=== PATIENT | female | born 1940 | race Caucasian/White ===

== ENCOUNTER 2019-05-15 10:15 | Inpatient (IN) | payer OTHER ==
[2019-05-15 10:46] VITALS: BMI 25.4
[2019-05-15] MEDS ORDERED: SODIUM CHLORIDE 1,000 ML IV STA (11:25)
[2019-05-15] MEDS ORDERED: METOCLOPRAMIDE HCL INJECTION 10 MG/2 ML VIAL IVPUSH ONE (11:25)
[2019-05-15] MEDS ORDERED: FAMOTIDINE 20 MG/50 ML IVPB 20 MG/50 ML MG IVPB ONE ×2 (11:26→11:33)
[2019-05-15] MEDS ORDERED: MAG HYDROX/AL HYDROX/SIMETH 30 ML UNIT-DOSE CUP PO ONE (11:26)
--- NOTE | 2019-05-15 11:28 | PDOC ---
History of Present Illness - General Chief Complaint: Pain, Acute Stated Complaint: ABD.PAIN/VOMITING Time Seen by Provider: 05/15/19 11:20 - History of Present Illness Initial Comments: 05/15/19 12:03 78f with pmh of GERD and HTN presents to the emergency department for nausea, non-bilious or bloody vomiting and abdominal pain since last night. She also had minimal diarrhea this morning. She says the pain feels like her usual GERD symptoms except more sever, with a burning quality. She denies subjective fever, chills, recent trauma or any past surgeries. Also denies dysuria, constipation, chest pain, sob. Past History - Past Medical History Allergies/Adverse Reactions: Allergies Allergy/AdvReac Type Severity Reaction Status Date / Time Fish Containing Products Allergy Mild Verified 05/15/19 19:26 fish derived Allergy Mild Verified 05/15/19 19:26 Penicillins Allergy Verified 05/15/19 10:43 Home Medications: Ambulatory Orders Amlodipine Besylate/Benazepril [Lotrel 5-40 mg Capsule] 1 each PO DAILY Cyanocobalamin [Vitamin B12 -] 1 tab PO DAILY 06/16/16 Esomeprazole Magnesium 40 mg PO DAILY 06/16/16 Gabapentin [Neurontin -] 100 mg PO Q8H 06/16/16 Multivitamin with Minerals [Icaps Plus] 1 each PO DAILY 06/16/16 COPD: No GI Disorders: Yes (GERD) HTN: Yes - Immunization History Immunization Up to Date: Yes - Suicide/Smoking/Psychosocial Hx Smoking History: Never smoked Hx Alcohol Use: No Drug/Substance Use Hx: No Substance Use Type: None Review of Systems - Review of Systems Able to Perform ROS?: Yes Is the patient limited Faroese proficient: No Constitutional: No: Symptoms Reported HEENTM: No: Symptoms Reported Respiratory: No: Symptoms reported Cardiac (ROS): No: Symptoms Reported ABD/GI: Yes: See HPI, Nausea, Vomiting. No: Abdominal Distended, Abd. Pain w/ defecation, Blood Streaked Bowels, Difficulty Swallowing, Rectal Bleeding, Tarry Stools : No: Symptoms Reported Musculoskeletal: No: Symptoms Reported Integumentary: No: Symptoms Reported Neurological: No: Symptoms reported All Other Systems: Reviewed and Negative *Physical Exam - Vital Signs Last Vital Signs Temp Pulse Resp BP Pulse Ox 98.1 F 72 17 139/67 99 08/29/19 10:43 05/15/19 10:43 05/15/19 10:43 05/15/19 10:43 05/15/19 10:43 - Physical Exam General Appearance: Yes: Nourished, Appropriately Dressed, Moderate Distress HEENT: positive: EOMI, LAYNE, Normal ENT Inspection Respiratory/Chest: positive: Lungs Clear, Normal Breath Sounds. negative: Chest Tender, Respiratory Distress Cardiovascular: positive: Regular Rhythm, Regular Rate, S1, S2 Gastrointestinal/Abdominal: positive: Normal Bowel Sounds, Tender (diffusely but more so in the upper quadrant. ), Soft. negative: Organomegaly, Pulsatile Mass, Decreased BS, Protuberent, Distended, Hernia Musculoskeletal: positive: Normal Inspection. negative: CVA Tenderness Extremity: positive: Normal Capillary Refill, Normal Inspection, Normal Range of Motion Integumentary: positive: Normal Color, Dry, Warm Neurologic: positive: Fully Oriented, Alert, Normal Mood/Affect, Normal Response , Motor Strength /5 ED Treatment Course - LABORATORY CBC & Chemistry Diagram: 05/15/19 12:00 05/15/19 12:00 Medical Decision Making - Medical Decision Making 78f with pmh of GERd and HTN presents with n/v/d and exquisite abdominal pain since last night. Differential including but not limited to: Gallstones, gastric ulcer/perforation , aortic dissection, pancreatitis, diverticulitis, mesenteric ischemia, atypical ACS. 05/15/19 11:25 EKG: Normal sinus rhythm, nonspecific T wave abnormality, Prolonged QT. Vent rate 74, MA 158, QRS 72, QT/QTc 448/97 05/15/19 12:29 Bedside ultrasound performed with possible stones in the gallbladder, difficult exam, will repeat official U/S, likely complete with CT ab/pelv with contrast. Also checking free air under diaphrag with cxr and blood in the stool with stool guaiac. 05/15/19 13:12 Patient has elevated Lactate, liver enzymes, Lipase and Bilirubin, likely obstruction in the pancreatic duct. CT abdomen pending, Will control pain, getting abx, fluids. 05/15/19 14:20 CT read: Findings consistent with acute pancreatitis mainly involving the pancreatic tail at this junction with the pancreatic body with significant stranding of the surrounding mesenteric fat and a moderate amount of free fluid extending to the left perinephric space, left flank/ paracolic gutter and lower pelvis. There is also suggestion of mild ileus involving adjacent small bowel loops in the left mid abdomen with mild wall thickening likely due to surrounding fatty change. Thickening of the gastric antrum wall with haziness of the surrounding fat, rule out gastritis or an infiltrative process. Partially distended gallbladder with hyperemia and mild thickening of its wall as well as stranding of the surrounding fat versus a small amount of pericholecystic free fluid. Rule out acute cholecystitis. Previously described gallstones on prior upper abdomen ultrasound done earlier on the same date are not appreciated on this exam. Thickening of the ascending colon wall that may be due to surrounding inflammatory changes. Similar finding is seen in the descending colon. There is collapse of the transverse colon limiting evaluation of its wall. Colitis cannot be excluded. Correlate clinically. Spoke to Dr. Harper who recommended constant hydration and MRCP with GI consult. Consulting GI reservations clerk. Starting abx and LR x2 boluses and maintenance. 05/15/19 15:[address] Negron who has been consulted for the patient. MRCP pending. Patient admitted under Dr. Terrell. Will repeat lactate and decide whether or not patient needs ICU. 05/15/19 15:14 Patient admitted to med surg *DC/Admit/Observation/Transfer Diagnosis at time of Disposition: Cholecystitis, Pancreatitis due to biliary obstruction, Colitis, Gastritis - Discharge Dispostion Decision to Admit order: Yes - Referrals - Patient Instructions - Post Discharge Activity
[2019-05-15] MEDS ORDERED: METOCLOPRAMIDE HCL INJECTION 10 MG/2 ML VIAL ONE (12:01)
--- NOTE | 2019-05-15 12:08 | PDOC ---
Documentation entered by Adriana Stein SCRIBE, acting as scribe for Tomasa Omalley MD. Tomasa Omalley MD: This documentation has been prepared by the Sarita partida Adrianna, SCRIBE, under my direction and personally reviewed by me in its entirety. I confirm that the documentation accurately reflects all work, treatment, procedures, and medical decision making performed by me. Attending Attestation - Resident Resident Name: Jesse Cummings - ED Attending Attestation I have performed the following: I have examined & evaluated the patient, The case was reviewed & discussed with the resident, I agree w/resident's findings & plan, Exceptions are as noted - HPI HPI: 05/15/19 12:05 78 yo F w h/o htn gastrisittis GERD here today c/o intractable n/v /d starting last pm. pt describes more than 10 episodes of nonbloody nonbilious emesis. also several episodes of loose watery stool. no fever, but does report chills. no mod factors. no h/o abd surgery. no urinary complaints. no cough no cp no other complaints. pcp dianna Terrell. - Physicial Exam PE: 05/15/19 12:06 awake alert dry mucous membranes lungs clear bilat heart rrr no mrg abd soft epigastric ttp. ruq ttp. no rebound no guarding. no edema. no calf tenderness. no flank/ cva tenderness. - Medical Decision Making 05/15/19 12:07 78 yo F with htn gerd n/v/ diffusely tender abd exam, mostly ruq, differential gastritis dehydration. cholecystitis pyelonephritis. pancreatitis, gatric ulcer , colitis, plan labs iv hydration lipase lactate ua antiemetics. ruq us. possible ct pending results of ruq sono. 05/15/19 14:25 pt with cholecystitis/ pancreatitis stones. elevated wbc, will given aztreonam, pt pcn allergic, surgery consulted d/w dr Harper ( dr Cummings), ct read pending. pg GI, d/w DR Dianna Terrell for admission. Heart Score/ECG Review #1 General ECG Interpretation: Sinus Rhythm, Normal Rate (74), Normal Intervals, No acute ischemic changes
[2019-05-15 12:14] LABS: BASO % 0.2 % (0-2.0); HEMATOCRIT 48.6 % (32.4-45.2); HEMOGLOBIN 15.6 GM/dL (10.7-15.3); LYMPH % 2.9 % (8-40); MCH 28.2 pg (25.7-33.7); MCHC 32.1 g/dl (32.0-36.0); MEAN PLT VOLUME 9.6 fl (7.5-11.1); MONO % 4.5 % (3.8-10.2); NEUT % 92.4 % (42.8-82.8); PLATELET COUNT 283 K/MM3 (134-434); RBC 5.52 M/mm3 (3.60-5.2); RDW 14.8 % (11.6-15.6); WHITE BLOOD COUNT 11.4 K/mm3 (4.0-10.0)
[2019-05-15 12:48] LABS: ALBUMIN 4.2 g/dl (3.4-5.0); ALK PHOS 176 U/L (45-117); ANION GAP 9 MMOL/L (8-16); BILIRUBIN,TOTAL 2.8 mg/dL (0.2-1); BLOOD UREA NITROGEN 17.9 mg/dL (7-18); CALCIUM 10.1 mg/dL (8.5-10.1); CHLORIDE 106 mmol/L (98-107); CO2 25 mmol/L (21-32); CREATININE 1.5 mg/dL (0.55-1.3); GLUCOSE,RANDOM 246 mg/dL (74-106); LIPASE 12480 U/L (73-393); SGOT/AST 512 U/L (15-37); SGPT/ALT 405 U/L (13-61); SODIUM 139 mmol/L (136-145); TOT PROT 7.3 g/dl (6.4-8.2)
[2019-05-15 12:58] LABS: ANISOCYTOSIS 0; MACROCYTOSIS 0; PLATELET ESTIMATE NORMAL
[2019-05-15] MEDS ORDERED: AZTREONAM 2 GM in DEXTROSE 5%-WATER 100 ML IVPB ONE (13:08)
[2019-05-15] MEDS ORDERED: LACTATED RINGERS SOLUTION 1,000 ML/1,000 ML INFUS.BAG IV STA (13:11)
[2019-05-15] MEDS ORDERED: morphine CARPU-JECT 4 MG/1 ML DISP.SYRIN IVPUSH ONE ×2 (13:13→15:17)
[2019-05-15] MEDS ORDERED: morphine SULFATE 4 MG/ML VIAL ONE ×2 (13:17→15:13)
[2019-05-15] MEDS ORDERED: LACTATED RINGERS SOLUTION 1,000 ML/1,000 ML INFUS.BAG IV SCH (13:45)
--- NOTE | 2019-05-15 15:27 | EKG ---
Test Reason : Blood Pressure : / mmHG Vent. Rate : 074 BPM Atrial Rate : 074 BPM P-R Int : 158 ms QRS Dur : 072 ms QT Int : 448 ms P-R-T Axes : 064 -05 049 degrees QTc Int : 497 ms POOR DATA QUALITY, INTERPRETATION MAY BE ADVERSELY AFFECTED NORMAL SINUS RHYTHM NONSPECIFIC T WAVE ABNORMALITY PROLONGED QT ABNORMAL ECG NO PREVIOUS ECGS AVAILABLE Confirmed by RAMSEY SHAFFER, ADRIANO ([id number]) on 05/15/2019 3:27:29 PM Referred By: Confirmed By:ADRIANO MUSTAFA MD
[2019-05-15] MEDS ORDERED: ONDANSETRON 4 MG/2 ML VIAL IVPUSH PRN (17:15)
[2019-05-15] MEDS ORDERED: SODIUM CHLORIDE 1,000 ML IV SCH (17:15)
--- NOTE | 2019-05-15 17:18 | HP ---
Admitting History and Physical - Primary Care Physician PCP: Liliya Terrell - Admission Chief Complaint: abd pain History of Present Illness: ER HISTORY-- - History of Present Illness Initial Comments: 05/15/19 12:03 78f with pmh of GERD and HTN presents to the emergency department for nausea, non-bilious or bloody vomiting and abdominal pain since last night. She also had minimal diarrhea this morning. She says the pain feels like her usual GERD symptoms except more sever, with a burning quality. She denies subjective fever, chills, recent trauma or any past surgeries. Also denies dysuria, constipation, chest pain, sob. Pt examined by me in ER Family at bedside Pt in severe pain -- received 8mg Morphine so far Has been having progressively severe abd pain with nausea since 1 day No fever had diarrhea + vomiting+ no appetite History Source: Patient, Family Member Limitations to Obtaining History: Language Barrier - Past Medical History Cardiovascular: Yes: HTN Gastrointestinal: Yes: GERD - Smoking History Smoking history: Never smoked - Alcohol/Substance Use Hx Alcohol Use: No Home Medications - Allergies Allergies/Adverse Reactions: Allergies Allergy/AdvReac Type Severity Reaction Status Date / Time Fish Containing Products Allergy Mild Verified 05/15/19 19:26 fish derived Allergy Mild Verified 05/15/19 19:26 Penicillins Allergy Verified 05/15/19 10:43 - Home Medications Home Medications: Ambulatory Orders Amlodipine Besylate/Benazepril [Lotrel 5-40 mg Capsule] 1 each PO DAILY Cyanocobalamin [Vitamin B12 -] 1 tab PO DAILY 06/16/16 Esomeprazole Magnesium 40 mg PO DAILY 06/16/16 Gabapentin [Neurontin -] 100 mg PO Q8H 06/16/16 Multivitamin with Minerals [Icaps Plus] 1 each PO DAILY 06/16/16 Family Disease History - Family Disease History Family History: Denies Review of Systems - Review of Systems Constitutional: denies: Chills, Fever, Weakness Gastrointestinal: reports: Abdominal Pain, Diarrhea, Nausea, Vomiting Physical Examination Vital Signs: Vital Signs Temperature 97.8 F 05/15/19 12:08 Pulse Rate 74 05/15/19 15:20 Respiratory Rate 18 05/15/19 15:20 Blood Pressure 153/100 05/15/19 15:20 O2 Sat by Pulse Oximetry (%) 99 05/15/19 10:43 Constitutional: Yes: Moderate Distress Cardiovascular: Yes: Regular Rate and Rhythm Respiratory: Yes: CTA Bilaterally Gastrointestinal: Yes: Normal Bowel Sounds, Soft, Abdomen, Obese, Distention, Tenderness (RUQ+) Edema: No Neurological: Yes: Alert, Oriented Labs: CBC, BMP 05/15/19 12:00 05/15/19 12:00 Imaging - Results Chest X-ray: Image Reviewed Cat Scan: Report Reviewed Ultrasound: Report Reviewed EKG: Image Reviewed (sinus, prolonged QTc) Problem List - Problems (1) Acute gallstone pancreatitis Code(s): K85.10 - BILIARY ACUTE PANCREATITIS WITHOUT NECROSIS OR INFECTION (2) Cholecystitis Code(s): K81.9 - CHOLECYSTITIS, UNSPECIFIED (3) Gastritis Code(s): K29.70 - GASTRITIS, UNSPECIFIED, WITHOUT BLEEDING (4) Hypertension Code(s): I10 - ESSENTIAL (PRIMARY) HYPERTENSION Qualifiers: Hypertension type: essential hypertension Qualified Code(s): I10 - Essential (primary) hypertension Assessment/Plan PLAN elevated WBC ID eval Surgery and GI eval IV antibiotics cultures drawn NPO IV fluids pain control with Morphine DVT prophylaxis-- SCD , Lovenox sc Will need cholecystectomy
[2019-05-15 18:23] LABS: VENOUS PC02 33.3 mmHg (38-52); VENOUS PH 7.39 (7.31-7.41)
[2019-05-15 18:32] LABS: VENOUS PO2 < 49 mmHg (28-48)
[2019-05-15] MEDS: MORPHINE SULFATE 2 MG/ML VIAL IVPUSH PRN ×2 (18:32→21:58)
[2019-05-15] MEDS: LACTATED RINGERS SOLUTION 1,000 ML/1,000 ML INFUS.BAG IV SCH (18:32)
[2019-05-15] MEDS ORDERED: POTASSIUM CHLORIDE ORAL LIQUID 20 MEQ/15 ML PO STA (20:27)
[2019-05-15] MEDS ORDERED: DEXTROSE 5%-WATER - 50 ML IVPB ONE (20:57)
[2019-05-15] MEDS ORDERED: AZTREONAM 1 GM VIAL (RESTRICTED TO ID) ONE (20:57)
--- NOTE | 2019-05-15 20:58 | CON.GI ---
Consult Consult Specialty:: GI Referred by:: Dr. Lillian Terrell Reason for Consultation:: Pancreatitis - History of Present Illness Chief Complaint: Abdominal pain, nausea, vomtiing. Tel[employer] Git seismic interpreter [id number] and family at bedside to aid in interpretation (daughter / ) History of Present Illness: 78F admitted through [facility] ER for evaluation of progressively worse upper abdominal pain acoompanied by nausea and vomiting. ]She has had less severe episodes in the past, the last being 1 month ago while she was in the [place]. In the ED she was noted to have a leukocytosis, elevated liver chemistries and a lipase of 12,[address] scan of the A/P was performed with IV contrast revealed changes consistent with acute pancreatitis and thickened gallbladder wall. Abdominal US revealed multoiple gallstones, thickened gallbladder wall and trace pericholecystic fluid. The biliary tract did not appear dilated. She received 2 L of lactated ringers in the ED. She has just returned from MRI. upper abdominal pain persists. - History Source History Provided By: Patient, Family Member - Past Medical History Cardio/Vascular: Yes: HTN Gastrointestinal: Yes: GERD ...: No - Past Surgical History Additional Surgical History: Denies - Alcohol/Substance Use Hx Alcohol Use: No History of Substance Use: reports: None - Smoking History Smoking history: Never smoked Have you smoked in the past 12 months: No - Social History Usual Living Arrangement: With Spouse ADL: Independent Place of : Other ([facility]) History of Recent Travel: Yes () Home Medications - Allergies Allergies/Adverse Reactions: Allergies Allergy/AdvReac Type Severity Reaction Status Date / Time Fish Containing Products Allergy Mild Verified 05/15/19 19:26 fish derived Allergy Mild Verified 05/15/19 19:26 Penicillins Allergy Verified 05/15/19 10:43 - Home Medications Home Medications: Ambulatory Orders Amlodipine Besylate/Benazepril [Lotrel 5-40 mg Capsule] 1 each PO DAILY Cyanocobalamin [Vitamin B12 -] 1 tab PO DAILY 06/16/16 Esomeprazole Magnesium 40 mg PO DAILY 06/16/16 Gabapentin [Neurontin -] 100 mg PO Q8H 06/16/16 Multivitamin with Minerals [Icaps Plus] 1 each PO DAILY 06/16/16 Family Disease History - Family Disease History Family Disease History: Other: Daughter Other Family History: No family history of colorectal cancer, pancreatitis Review of Systems - Review of Systems Constitutional: reports: Chills Cardiovascular: denies: Chest Pain Respiratory: denies: Cough, SOB Gastrointestinal: reports: Abdominal Pain, Nausea, Vomiting. denies: Rectal Bleeding Physical Exam-GI Vital Signs: Vital Signs Temperature 97.8 F 05/15/19 18:04 Pulse Rate 72 05/15/19 18:04 Respiratory Rate 18 05/15/19 18:04 Blood Pressure 154/76 05/15/19 18:04 O2 Sat by Pulse Oximetry (%) 98 05/15/19 18:04 Constitutional: Yes: Calm Eyes: No: Sclera Icterus Cardiovascular: Yes: Regular Rate and Rhythm Respiratory: Yes: CTA Bilaterally Gastrointestinal Inspection: No: Distention, Scars ...Auscultate: Yes: Normoactive Bowel Sounds ...Palpate: Yes: Soft, Tenderness (TTP mid abdomen. Negative zarate's). No: Guarding ...Percussion: No: Tympanitic Edema: No (No LE edema) Neurological: Yes: Alert (somnolent (had received IV analgesia)) Labs: CBC, BMP 05/15/19 12:00 05/15/19 12:00 Imaging - Results Cat Scan: Report Reviewed, Image Reviewed Problem List - Problems (1) Acute gallstone pancreatitis Assessment/Plan: With prior episodes of biliary colic or passed CBD stones by description. Hemodynamically stable: Advise: Continued IV hydration. Ordered Lactated ringers @ 200cc/hr Monitor I's and O's AM labs MRI/MRCP performed. Await report. Discussed with her daughter this evening the need for possible ERCP if there is radiographic / lab suggestion of retained CBD stone. ID consult placed AM labs ordered with CRP Surgery to evaluate patient. She will need eventual cholecystectomy once clinically improved Code(s): K85.10 - BILIARY ACUTE PANCREATITIS WITHOUT NECROSIS OR INFECTION
[2019-05-15] MEDS ORDERED: AZTREONAM 1 GM in DEXTROSE 5%-WATER - 50 ML IVPB SCH (21:00)
[2019-05-15] MEDS: AZTREONAM 1 GM in DEXTROSE 5%-WATER - 50 ML IVPB SCH (21:58)
[2019-05-15 22:09] LABS: INR 1.24 (0.83-1.09); PROTHROMBIN TIME (PATIENT) 14.7 SEC (9.7-13.0)
[2019-05-15] MEDS ORDERED: VANCOMYCIN 1 GRAM (PRE-DOCKED) 1,000 MG/250 ML BAG IVPB ONE (22:30)
[2019-05-15] MEDS: KCL 10 MEQ IVPB 10 MEQ/100 ML INFUS.BAG IVPB SCH (23:11)
[2019-05-16] MEDS: KCL 10 MEQ IVPB 10 MEQ/100 ML INFUS.BAG IVPB SCH (00:18)
[2019-05-16] MEDS: MORPHINE SULFATE 2 MG/ML VIAL IVPUSH PRN ×6 (01:01→23:26)
[2019-05-16] MEDS ORDERED: DEXTROSE 5%-WATER - 100 ML IVPB ONE (03:56)
[2019-05-16] MEDS ORDERED: AZTREONAM 1 GM VIAL (RESTRICTED TO ID) ONE ×2 (03:56→08:52)
[2019-05-16] MEDS: AZTREONAM 1 GM in DEXTROSE 5%-WATER - 50 ML IVPB SCH ×2 (04:06→09:10)
[2019-05-16] MEDS ORDERED: PT OWN MED DRAWER 7, Y5N ONE ×2 (07:55→17:52)
[2019-05-16] MEDS ORDERED: DEXTROSE 5%-WATER - 50 ML IVPB ONE (08:52)
[2019-05-16 08:56] LABS: BASO % 0.1 % (0-2.0); HEMATOCRIT 46.3 % (32.4-45.2); HEMOGLOBIN 15.1 GM/dL (10.7-15.3); LYMPH % 3.1 % (8-40); MCH 28.3 pg (25.7-33.7); MCHC 32.6 g/dl (32.0-36.0); MEAN CELL VOLUME 86.9 fl (80-96); MEAN PLT VOLUME 9.2 fl (7.5-11.1); MONO % 5.6 % (3.8-10.2); NEUT % 91.2 % (42.8-82.8); PLATELET COUNT 231 K/MM3 (134-434); RBC 5.33 M/mm3 (3.60-5.2); RDW 15.3 % (11.6-15.6); WHITE BLOOD COUNT 17.8 K/mm3 (4.0-10.0)
[2019-05-16] MEDS: PANTOPRAZOLE SODIUM 40 MG VIAL IVPUSH SCH (09:10)
[2019-05-16 09:22] LABS: ALBUMIN 3.4 g/dl (3.4-5.0); BILIRUBIN,TOTAL 3.5 mg/dL (0.2-1); BLOOD UREA NITROGEN 20.7 mg/dL (7-18); CALCIUM 9.2 mg/dL (8.5-10.1); CREATININE 1.2 mg/dL (0.55-1.3); POTASSIUM 4.4 mmol/L (3.5-5.1); TOT PROT 6.2 g/dl (6.4-8.2)
--- NOTE | 2019-05-16 09:33 | PN ---
Progress Note (short form) - Note Progress Note: ID consult dictated imp/reccd 78 yo female admitted from home with abdominal pain, nausea vomiting and diarrhea no fevers she had a similar episode when she was in in January-February of this year- didnot seek medical care- resolved on its own family thinks she has had 3 to 4 similar episodes over the last 1 1/2 years no recent antibiotics only hospitalization has been for childbirth (7 children all born in ) vomiting and diarrhea has resolved has diffuse abdominal pain radiating to the back penicillin allergy rash and swelling gallstone pancreatitis- MRCP pending- r/o choledocholithiasis blood cultures sent last night continue vancomycin/azactam and flagyl continue IVF f/u with GI for surgical evaluation-possible cholycystitis rommel- improving with IVF d/w patient d/w daughters at bedside Problem List - Problems (1) Acute gallstone pancreatitis Code(s): K85.10 - BILIARY ACUTE PANCREATITIS WITHOUT NECROSIS OR INFECTION (2) Cholecystitis Code(s): K81.9 - CHOLECYSTITIS, UNSPECIFIED (3) Penicillin allergy Code(s): Z88.0 - ALLERGY STATUS TO PENICILLIN
[2019-05-16] MEDS: AZTREONAM 2 GM in DEXTROSE 5%-WATER 100 ML IVPB SCH ×2 (10:21→18:18)
--- NOTE | 2019-05-16 10:35 | CONS ---
INFECTIOUS DISEASE CONSULTATION DATE OF CONSULTATION: DATE OF DICTATION: 05/16/2019 REQUESTING PHYSICIAN: Dr. Negron This is an 78-year-old woman admitted from home with abdominal pain, nausea, vomiting, and diarrhea. She had acute onset of these symptoms since the prior night. The vomiting and diarrhea have since resolved. In the ER, she was noted to have an elevated amylase and elevated/abnormal LFTs, diffuse abdominal pain, and a CAT scan consistent with pancreatitis and gallstones. She had a creatinine of 1.5 and was admitted for further evaluation. She denies any fevers or chills. Of note, she was recently in the [facility] in January and February. While there, she had an episode as well of abdominal pain, nausea, vomiting, and diarrhea. She did not seek any medical care, and the symptoms resolved on their own. On further evaluation, the family thinks in the last 1-1/2 years, she has probably had 3 or 4 similar events. PAST MEDICAL HISTORY: Notable for hypertension and GERD. She has only been in the hospital in the [facility] for child , and she has 7 children. SURGICAL HISTORY: She has never had any surgery. SOCIAL HISTORY: She lives at home. She is very active. She lives with her spouse. She takes care of her grandkids. There is no history of cigarette, alcohol, or substance use. ALLERGIES: She is allergic to FISH PRODUCTS and PENICILLIN allergy that the daughter describes as both swelling and rash. MEDICATIONS AT HOME: Include Lotrel, vitamin B12, omeprazole, gabapentin, and multivitamins. FAMILY HISTORY: There is no history of cancer or pancreatitis. REVIEW OF SYSTEMS: As per HPI. She has no chest pain. She has no cough. She has no dysuria. PHYSICAL EXAMINATION: Vital Signs: Temperature is 98.3. Pulse is 84. Blood pressure 142/74, respiratory rate of 18. HEENT: She is normocephalic. Her eyes are anicteric. Neck: Supple. Lungs: Clear to auscultation. Heart: Regular rate and rhythm. Abdomen: Soft. There is no distention. She has bowel sounds, and she has diffuse tenderness to palpation. Extremities: Without edema. Skin: She has no rash. LABORATORY DATA: White count on admission was 11.4. This morning is 17.8. Hemoglobin 15.1. Platelets are 231. INR is 1.2. BUN was 17 and creatinine 1.5 on admission. This morning, they are 20 and 1.2. Glucose of 139. Lactic acid was 3.8 on admission. This morning, it is 1.5. Total bilirubin of 3.5 with AST of 203, ALT of 296, alkaline phosphatase of 164. Lipase on admission was 12,480. This morning, it is 4625. I ordered blood cultures last night, which are pending. She had an ultrasound in the emergency room, that was notable for multiple gallstones with wall thickening and questionable trace pericholecystic fluid; rule out acute cholecystitis. She had a CAT scan of her abdomen and pelvis, that was notable for acute pancreatitis involving the tail of the pancreas at the junction with the pancreatic body, suggestion of mild ileus, thickening of the gastric antrum wall, partially distended gallbladder with hyperemia and mild thickening of its wall; rule out acute cholecystitis. In summary, this is an 78-year-old woman with gallstone pancreatitis, possible choledocholithiasis; rule out cholecystitis. She has a PENICILLIN allergy that appears to be a major allergy. So, at this time, would continue the vancomycin, Azactam, and Flagyl as ordered. Follow up on her MRCP to see if she needs ERCP. IV fluids to continue. Follow up with GI. She is scheduled for surgical evaluation as she appears to have possible cholecystitis. Case was discussed with the patient, with her daughters at the bedside, who served as interpreters as well. MENDEL OWEN M.D. [id number]
[2019-05-16 11:34] LABS: ANISOCYTOSIS 0; MACROCYTOSIS 0; PLATELET ESTIMATE NORMAL
--- NOTE | 2019-05-16 11:41 | PN ---
Progress Note (short form) - Note Progress Note: pt seen/ examined chart reviewed awake. looks weak +ve pain Daughter at bedside reports Meds helping pain. NPO Vital Signs Temp 98.2 F 05/16/19 11:16 Pulse 92 H 05/16/19 11:16 Resp 18 05/16/19 11:16 BP 154/79 05/16/19 11:16 Pulse Ox 96 05/16/19 09:00 Intake & Output 05/15/19 05/15/19 05/16/19 11:59 23:59 11:59 Intake Total 1250 Balance 1250 Weight 126 lb 126 lb Intake: IV 600 LACTATED RINGERS SOLUTION 600 1,000 ml In 1,000 ml @ 200 mls/hr IV ASDIR JOHN Rx#:[id number] IVPB 650 Other: Voiding Method Bedpan Bedpan # Unmeasured Voids Void 1 Bowel Movement No No Height 4 ft 11 in 4 ft 11 in Body Mass Index (BMI) 25.4 25.4 [facility] Measurement Method Est/Stated by Patient Active Medications Metronidazole (Flagyl 500mg Premixed Ivpb -) 500 mg in 100 mls @ 100 mls/hr IVPB Q8H-IV JOHN Last Admin: 05/16/19 10:43 Dose: 100 mls/hr Lactated Ringer's (Lactated Ringers Solution) 1,000 ml in 1,000 mls @ 200 mls/ hr IV ASDIR JOHN Last Admin: 05/15/19 18:32 Dose: 200 mls/hr Aztreonam 2 gm/ Dextrose 100 mls @ 100 mls/hr IVPB Q8H-IV JOHN; Protocol Last Admin: 05/16/19 10:21 Dose: Not Given Vancomycin HCl (Vancomycin (Pre-Docked)) 1,000 mg in 250 mls @ 166.667 mls/hr IVPB Q24H JOHN; Protocol Morphine Sulfate (Morphine Sulfate) 2 mg IVPUSH Q3H PRN PRN Reason: PAIN LEVEL 6-10 Last Admin: 05/16/19 07:36 Dose: 2 mg Ondansetron HCl (Zofran Injection) 4 mg IVPUSH Q4H PRN PRN Reason: NAUSEA AND/OR VOMITING Last Admin: 05/15/19 18:49 Dose: 4 mg Pantoprazole Sodium (Protonix Iv) 40 mg IVPUSH DAILY JOHN Last Admin: 05/16/19 09:10 Dose: 40 mg CBC, BMP 05/16/19 08:38 05/16/19 08:38 Abnormal Lab Results 05/15/19 05/15/19 05/15/19 12:00 12:00 12:00 WBC 11.4 H RBC 5.52 H Hgb 15.6 H Hct 48.6 H D Absolute Neuts (auto) 10.5 H Neutrophils % 92.4 H D Neutrophils % (Manual) 94.9 H Lymphocytes % 2.9 L D Lymphocytes % (Manual) 0.0 L PT with INR INR POC VBG pCO2 POC VBG pO2 VBG HCO3 VBG O2 Sat (Daniela) VBG Base Excess Potassium 3.0 L Chloride BUN Creatinine 1.5 H Random Glucose 246 H Lactic Acid 3.8 H* Total Bilirubin 2.8 H AST 512 H ALT 405 H Alkaline Phosphatase 176 H C-Reactive Protein Total Protein Lipase 03960 H 05/15/19 05/15/19 05/15/19 16:20 17:45 21:00 WBC RBC Hgb Hct Absolute Neuts (auto) Neutrophils % Neutrophils % (Manual) Lymphocytes % Lymphocytes % (Manual) PT with INR 14.70 H INR 1.24 H POC VBG pCO2 33.3 L POC VBG pO2 < 49 H VBG HCO3 19.9 L VBG O2 Sat (Daniela) 69.4 L VBG Base Excess -3.9 L Potassium Chloride BUN Creatinine Random Glucose Lactic Acid 3.5 H* Total Bilirubin AST ALT Alkaline Phosphatase C-Reactive Protein Total Protein Lipase 05/16/19 05/16/19 05/16/19 08:38 08:38 08:38 WBC 17.8 H RBC 5.33 H Hgb Hct 46.3 H Absolute Neuts (auto) 16.2 H Neutrophils % 91.2 H Neutrophils % (Manual) 85.0 H Lymphocytes % 3.1 L Lymphocytes % (Manual) 1.0 L D PT with INR INR POC VBG pCO2 POC VBG pO2 VBG HCO3 VBG O2 Sat (Daniela) VBG Base Excess Potassium Chloride 108 H BUN 20.7 H Creatinine Random Glucose 139 H Lactic Acid Total Bilirubin 3.5 H AST 203 H ALT 296 H Alkaline Phosphatase 164 H C-Reactive Protein 9.4 H Total Protein 6.2 L Lipase 4625 H Physical Awake/ weak supple +ve icterus cvs- s1, s2 rrr abd- soft . +ve tenderness + ext- no edema neuro- alert/ awake a/p Billary Pancreatitis Improved chemistries mri -Pending report Monitor labs also pain control will follow
--- NOTE | 2019-05-16 13:12 | PN.GI ---
GI Progress Note Subjective: No acute events Family at bedside. Her daughter Marisol explains that she was a bit confused this morning, however she has been receiving morphine regularly for the pain. Pain improved a bit per the patient. - Objective Vital Signs: Vital Signs Temperature 98.2 F 05/16/19 11:16 Pulse Rate 92 H 05/16/19 11:16 Respiratory Rate 18 05/16/19 11:16 Blood Pressure 154/79 05/16/19 11:16 O2 Sat by Pulse Oximetry (%) 96 05/16/19 09:00 Constitutional: Calm Eyes: No: Sclera Icterus Cardiovascular: Yes: Regular Rate and Rhythm. No: Murmur Respiratory: Yes: CTA Bilaterally Gastrointestinal Inspection: No: Distention ...Auscultate: Yes: Normoactive Bowel Sounds ...Palpate: Yes: Soft, Tenderness (TTP mid abdomen, somewhat improved from last night's exam.) ...Percussion: No: Tympanitic Edema: No (No LE edema) Neurological: Yes: Alert Labs: CBC, BMP 05/16/19 08:38 05/16/19 08:38 INR, PTT INR 1.24 (0.83-1.09) H 05/15/19 21:00 Hepatic Panel Total Bilirubin 3.5 mg/dL (0.2-1) H 05/16/19 08:38 AST 203 U/L (15-37) H 05/16/19 08:38 ALT 296 U/L (13-61) H 05/16/19 08:38 Alkaline Phosphatase 164 U/L (45-117) H 05/16/19 08:38 Albumin 3.4 g/dl (3.4-5.0) 05/16/19 08:38 Problem List - Problems (1) Acute gallstone pancreatitis Assessment/Plan: Clinically with some improvement and seems to be tolerating IV hydration. Transaminases and ALP have improved a bit with increase in bilirubin. Will continue to observe and await MRCP result. Continue IV hydration: Tolerating LR @ 200cc/hr On Abx for possible cholecystitis however I suspect that GB findings are secondary to pancreatic inflammatory changes. Monitor LFTs, NPO Code(s): K85.10 - BILIARY ACUTE PANCREATITIS WITHOUT NECROSIS OR INFECTION
--- NOTE | 2019-05-16 15:18 | CONSULT ---
Consult Consult Specialty:: General Surgery Referred by:: Edgar Omalley Reason for Consultation:: gallstone pancreatitis - History of Present Illness Chief Complaint: epigastric pain, N/V, diarrhea History of Present Illness: 78yo Randy F with HTN, GERD, no surgical history except colonoscopy ~2 yrs ago, admitted through ER yesterday with epigastric and LUQ pain for at least 1- 2 days, associated with chills (for a week per pt), N/V since Sun, diarrhea on Sunday, and inability to tolerate po. The pain does radiate through to her back, but she also has chronic back and leg pain. In the ER, she had leukocytosis, elevated LFTs and lipase 12K. Imaging includes US, CT, and MRCP, which show gallstones, somewhat contracted gallbladder with thickened wall , edema/inflammation of pancreas, more tail than head, with associated fluid, and no evidence of cbd stones or dilation. GI has seen pt; surgery was asked to assess. She is seen and examined in bed, with family present - daughter Zahra assisted with Portuguese at bedside. She reports feeling a little better overall, pain is better than yesterday, only a little now. She has not had vomiting or diarrhea today. Labs are trending down today, except wbc is up from 11 to 17. Initially elevated lactates are now normal. She is getting IV fluids and antibiotics (per ID). NPO except occasional ice chips. - History Source History Provided By: Family Member (daughter Zahra at bedside, patient) Limitations to Obtaining History: Language Barrier (Portuguese - daughter assisted with translation at bedside) - Past Medical History Cardio/Vascular: Yes: HTN Gastrointestinal: Yes: GERD Reproductive: Yes: Postmenopausal Musculoskeletal: Yes: Osteoarthritis - Past Surgical History Past Surgical History: Yes: Colonoscopy (last ~2 yrs ago) Additional Surgical History: Denies - Alcohol/Substance Use Hx Alcohol Use: No History of Substance Use: reports: None - Smoking History Smoking history: Never smoked Have you smoked in the past 12 months: No - Social History Usual Living Arrangement: With Spouse ADL: Independent History of Recent Travel: Yes () Home Medications - Allergies Allergies/Adverse Reactions: Allergies Allergy/AdvReac Type Severity Reaction Status Date / Time Fish Containing Products Allergy Mild Verified 05/15/19 19:26 fish derived Allergy Mild Verified 05/15/19 19:26 Penicillins Allergy Verified 05/15/19 10:43 - Home Medications Home Medications: Ambulatory Orders Amlodipine Besylate/Benazepril [Lotrel 5-40 mg Capsule] 1 each PO DAILY Cyanocobalamin [Vitamin B12 -] 1 tab PO DAILY 06/16/16 Esomeprazole Magnesium 40 mg PO DAILY 06/16/16 Gabapentin [Neurontin -] 100 mg PO Q8H 06/16/16 Multivitamin with Minerals [Icaps Plus] 1 each PO DAILY 06/16/16 Family Disease History - Family Disease History Family Disease History: Other: Daughter Other Family History: No family history of colorectal cancer, pancreatitis Review of Systems - Review of Systems Constitutional: reports: Chills. denies: Fever Eyes: denies: Blurred Vision, Recent Change in Vision HENT: denies: Difficult Swallowing, Throat Pain Neck: denies: Swollen Glands, Tenderness Cardiovascular: denies: Chest Pain, Palpitations Respiratory: denies: Cough, SOB Gastrointestinal: reports: Abdominal Pain, Diarrhea, Nausea, Vomiting Genitourinary: denies: Burning, Dysuria Musculoskeletal: reports: Back Pain (chronic and also with hpi), Extremity Pain (legs (chronic)) Integumentary: denies: Change in Color, Rash Neurological: reports: Dizziness (on Sunday). denies: Headache Psychiatric: denies: Anxiety, Depression Physical Exam Vital Signs: Vital Signs Temperature 98.2 F 05/16/19 11:16 Pulse Rate 92 H 05/16/19 11:16 Respiratory Rate 18 05/16/19 11:16 Blood Pressure 154/79 05/16/19 11:16 O2 Sat by Pulse Oximetry (%) 96 05/16/19 09:00 Constitutional: Yes: Well Nourished, No Distress, Calm Eyes: Yes: Conjunctiva Clear, EOM Intact. No: Sclera Icterus HENT: Yes: Atraumatic, Normocephalic Neck: Yes: Supple, Trachea Midline Cardiovascular: Yes: Regular Rate and Rhythm Respiratory: Yes: Regular, CTA Bilaterally Gastrointestinal: Yes: Normal Bowel Sounds, Soft, Tenderness (LUQ, epigastric, less RUQ; no rebound/guarding), Tenderness, Epigastrium ...Rectal Exam: Yes: Deferred Renal/: No: CVA Tenderness - Left, CVA Tenderness - Right Musculoskeletal: No: Joint Stiffness, Joint Swelling Extremities: No: Cool, Cyanosis Edema: No Peripheral Pulses WNL: Yes Integumentary: No: Jaundice, Rash Neurological: Yes: Alert, Oriented Psychiatric: Yes: Alert, Oriented Labs: CBC, BMP 05/16/19 08:38 05/16/19 08:38 CMP Sodium 141 mmol/L (136-145) 05/16/19 08:38 Potassium 4.4 mmol/L (3.5-5.1) 05/16/19 08:38 Chloride 108 mmol/L (98-107) H 05/16/19 08:38 Carbon Dioxide 24 mmol/L (21-32) 05/16/19 08:38 Anion Gap 8 MMOL/L (8-16) 05/16/19 08:38 BUN 20.7 mg/dL (7-18) H 05/16/19 08:38 Creatinine 1.2 mg/dL (0.55-1.3) 05/16/19 08:38 Est GFR (CKD-EPI)AfAm 49.43 05/16/19 08:38 Est GFR (CKD-EPI)NonAf 42.65 05/16/19 08:38 Random Glucose 139 mg/dL (74-106) H 05/16/19 08:38 Lactic Acid 1.5 mmol/L (0.4-2.0) 05/16/19 02:29 Calcium 9.2 mg/dL (8.5-10.1) 05/16/19 08:38 Total Bilirubin 3.5 mg/dL (0.2-1) H 05/16/19 08:38 AST 203 U/L (15-37) H 05/16/19 08:38 ALT 296 U/L (13-61) H 05/16/19 08:38 Alkaline Phosphatase 164 U/L (45-117) H 05/16/19 08:38 Troponin I < 0.02 ng/ml (0.00-0.05) 05/15/19 12:00 C-Reactive Protein 9.4 MG/DL (0.00-0.3) H 05/16/19 08:38 Total Protein 6.2 g/dl (6.4-8.2) L 05/16/19 08:38 Albumin 3.4 g/dl (3.4-5.0) 05/16/19 08:38 Lipase 4625 U/L (73-393) H 05/16/19 08:38 INR, PTT INR 1.24 (0.83-1.09) H 05/15/19 21:00 wbc up from 11 BUN/Cr up slightly lactate down from 2 and 3 lipase down from 12K Imaging - Results Cat Scan: Report Reviewed, Image Reviewed (images reviewed - gallbladder with thickened wall and fluid present, inflammation/edema of pancreatic tail and some stranding near head) Ultrasound: Report Reviewed, Image Reviewed (gallstones with no ductal dilation , thickened gb wall, trace pericholecystic fluid) MRI: Report Reviewed (contracted gallbladder with stones, pancreatitis with perisplenic and perihepatic fluid, no ductal dilation or cbd stones appreciated) , Image Reviewed Problem List - Problems (1) Acute gallstone pancreatitis Assessment/Plan: admitted to medicine NPO/generous IV hydration pain meds prn GI/DVT prophylaxis - would continue PPI as at home pt getting antibiotics per ID labs starting to trend down, but WBC up MRCP without cbd stones - monitor labs closely GI following less painful and tender than yesterday by report will follow with you timing for cholecystectomy to be determined ok to continue home bp meds with sips water Code(s): K85.10 - BILIARY ACUTE PANCREATITIS WITHOUT NECROSIS OR INFECTION (2) Epigastric pain Code(s): R10.13 - EPIGASTRIC PAIN (3) Nausea and vomiting Code(s): R11.2 - NAUSEA WITH VOMITING, UNSPECIFIED Qualifiers: Vomiting type: unspecified Vomiting Intractability: non-intractable Qualified Code(s): R11.2 - Nausea with vomiting, unspecified (4) Hypertension Code(s): I10 - ESSENTIAL (PRIMARY) HYPERTENSION Qualifiers: Hypertension type: essential hypertension Qualified Code(s): I10 - Essential (primary) hypertension
[2019-05-16] MEDS: LACTATED RINGERS SOLUTION 1,000 ML/1,000 ML INFUS.BAG IV SCH (18:18)
[2019-05-17] MEDS: VANCOMYCIN 1 GRAM (PRE-DOCKED) 1,000 MG/250 ML BAG IVPB SCH (00:10)
[2019-05-17] MEDS ORDERED: PT OWN MED DRAWER 7, Y5N ONE (02:29)
[2019-05-17] MEDS: AZTREONAM 2 GM in DEXTROSE 5%-WATER 100 ML IVPB SCH ×3 (02:37→17:10)
[2019-05-17] MEDS: MORPHINE SULFATE 2 MG/ML VIAL IVPUSH PRN ×2 (06:20→12:31)
[2019-05-17 09:31] LABS: BASO % 0.1 % (0-2.0); HEMATOCRIT 39.6 % (32.4-45.2); HEMOGLOBIN 12.9 GM/dL (10.7-15.3); LYMPH % 5.5 % (8-40); MCH 28.5 pg (25.7-33.7); MCHC 32.5 g/dl (32.0-36.0); MEAN CELL VOLUME 87.7 fl (80-96); MEAN PLT VOLUME 9.5 fl (7.5-11.1); MONO % 6.9 % (3.8-10.2); NEUT % 87.5 % (42.8-82.8); PLATELET COUNT 175 K/MM3 (134-434); RBC 4.52 M/mm3 (3.60-5.2); RDW 15.1 % (11.6-15.6); WHITE BLOOD COUNT 19.2 K/mm3 (4.0-10.0)
[2019-05-17] MEDS: PANTOPRAZOLE SODIUM 40 MG VIAL IVPUSH SCH (09:31)
[2019-05-17 09:46] LABS: ALBUMIN 2.7 g/dl (3.4-5.0); BILIRUBIN,TOTAL 1.5 mg/dL (0.2-1); BLOOD UREA NITROGEN 17.9 mg/dL (7-18); CALCIUM 8.4 mg/dL (8.5-10.1); CREATININE 0.9 mg/dL (0.55-1.3); POTASSIUM 3.8 mmol/L (3.5-5.1); TOT PROT 5.2 g/dl (6.4-8.2)
[2019-05-17 10:22] LABS: INR 1.54 (0.83-1.09); PROTHROMBIN TIME (PATIENT) 18.3 SEC (9.7-13.0)
--- NOTE | 2019-05-17 11:29 | PN ---
Progress Note (short form) - Note Progress Note: pt seen/ examined sitting in bed family at bedside feels and looks better decreased pain. lfts trending down mri - noted-- No stones Vital Signs Temp 98.3 F 05/17/19 06:00 Pulse 79 05/17/19 06:00 Resp 20 05/17/19 06:00 BP 137/68 05/17/19 06:00 Pulse Ox 93 L 05/16/19 21:00 Intake & Output 05/16/19 05/16/19 05/17/19 11:59 23:59 11:59 Intake Total 1250 1450 1250 Balance 1250 1450 1250 Intake: IV 600 1300 800 LACTATED RINGERS SOLUTION 600 1300 800 1,000 ml In 1,000 ml @ 200 mls/hr IV ASDIR JOHN Rx#:[id number] IVPB 650 150 450 Oral 0 0 Other: Voiding Method Bedpan Toilet Toilet # Unmeasured Voids Void 1 1 1 Bowel Movement No No Active Medications Metronidazole (Flagyl 500mg Premixed Ivpb -) 500 mg in 100 mls @ 100 mls/hr IVPB Q8H-IV JOHN Last Admin: 05/17/19 09:29 Dose: 100 mls/hr Lactated Ringer's (Lactated Ringers Solution) 1,000 ml in 1,000 mls @ 200 mls/ hr IV ASDIR JOHN Last Admin: 05/16/19 18:18 Dose: 200 mls/hr Aztreonam 2 gm/ Dextrose 100 mls @ 100 mls/hr IVPB Q8H-IV JOHN; Protocol Last Admin: 05/17/19 10:49 Dose: 100 mls/hr Vancomycin HCl (Vancomycin (Pre-Docked)) 1,000 mg in 250 mls @ 166.667 mls/hr IVPB Q24H JOHN; Protocol Last Admin: 05/17/19 00:10 Dose: 166.667 mls/hr Morphine Sulfate (Morphine Sulfate) 2 mg IVPUSH Q3H PRN PRN Reason: PAIN LEVEL 6-10 Last Admin: 05/17/19 06:20 Dose: 2 mg Ondansetron HCl (Zofran Injection) 4 mg IVPUSH Q4H PRN PRN Reason: NAUSEA AND/OR VOMITING Last Admin: 05/15/19 18:49 Dose: 4 mg Pantoprazole Sodium (Protonix Iv) 40 mg IVPUSH DAILY JOHN Last Admin: 05/17/19 09:31 Dose: 40 mg CBC,CMP WBC 19.2 K/mm3 (4.0-10.0) H 05/17/19 08:40 RBC 4.52 M/mm3 (3.60-5.2) 05/17/19 08:40 Hgb 12.9 GM/dL (10.7-15.3) 05/17/19 08:40 Hct 39.6 % (32.4-45.2) 05/17/19 08:40 MCV 87.7 fl (80-96) 05/17/19 08:40 MCH 28.5 pg (25.7-33.7) 05/17/19 08:40 MCHC 32.5 g/dl (32.0-36.0) 05/17/19 08:40 RDW 15.1 % (11.6-15.6) 05/17/19 08:40 Plt Count 175 K/MM3 (134-434) D 05/17/19 08:40 MPV 9.5 fl (7.5-11.1) 05/17/19 08:40 Absolute Neuts (auto) 16.8 K/mm3 (1.5-8.0) H 05/17/19 08:40 Neutrophils % 87.5 % (42.8-82.8) H 05/17/19 08:40 Neutrophils % (Manual) 85.0 % (42.8-82.8) H 05/16/19 08:38 Band Neutrophils % 7.0 % 05/16/19 08:38 Lymphocytes % 5.5 % (8-40) L D 05/17/19 08:40 Lymphocytes % (Manual) 1.0 % (8-40) L D 05/16/19 08:38 Monocytes % 6.9 % (3.8-10.2) 05/17/19 08:40 Monocytes % (Manual) 5 % (3.8-10.2) 05/16/19 08:38 Eosinophils % 0.0 % (0-4.5) 05/17/19 08:40 Eosinophils % (Manual) 0.0 % (0-4.5) 05/16/19 08:38 Basophils % 0.1 % (0-2.0) 05/17/19 08:40 Basophils % (Manual) 0.0 % (0-2.0) 05/16/19 08:38 Myelocytes % (Man) 1 % (0-2) D 05/16/19 08:38 Promyelocytes % (Man) 0 % (0-2) 05/16/19 08:38 Blast Cells % (Manual) 0 % (0-0) 05/16/19 08:38 Nucleated RBC % 0 % (0-0) 05/17/19 08:40 Metamyelocytes 1 % (0-2) D 05/16/19 08:38 Hypochromia 0 05/16/19 08:38 Platelet Estimate Normal 05/16/19 08:38 Polychromasia 0 05/16/19 08:38 Poikilocytosis 0 05/16/19 08:38 Anisocytosis 0 05/16/19 08:38 Microcytosis 0 05/16/19 08:38 Macrocytosis 0 05/16/19 08:38 Sodium 138 mmol/L (136-145) 05/17/19 08:40 Potassium 3.8 mmol/L (3.5-5.1) 05/17/19 08:40 Chloride 107 mmol/L (98-107) 05/17/19 08:40 Carbon Dioxide 22 mmol/L (21-32) 05/17/19 08:40 Anion Gap 9 MMOL/L (8-16) 05/17/19 08:40 BUN 17.9 mg/dL (7-18) 05/17/19 08:40 Creatinine 0.9 mg/dL (0.55-1.3) 05/17/19 08:40 Est GFR (CKD-EPI)AfAm 69.99 05/17/19 08:40 Est GFR (CKD-EPI)NonAf 60.39 05/17/19 08:40 Random Glucose 100 mg/dL (74-106) 05/17/19 08:40 Lactic Acid 1.5 mmol/L (0.4-2.0) 05/16/19 02:29 Calcium 8.4 mg/dL (8.5-10.1) L 05/17/19 08:40 Total Bilirubin 1.5 mg/dL (0.2-1) H D 05/17/19 08:40 AST 70 U/L (15-37) H 05/17/19 08:40 ALT 151 U/L (13-61) H 05/17/19 08:40 Alkaline Phosphatase 113 U/L (45-117) 05/17/19 08:40 Troponin I < 0.02 ng/ml (0.00-0.05) 05/15/19 12:00 C-Reactive Protein 23.4 MG/DL (0.00-0.3) H 05/17/19 08:40 Total Protein 5.2 g/dl (6.4-8.2) L 05/17/19 08:40 Albumin 2.7 g/dl (3.4-5.0) L 05/17/19 08:40 Lipase 1109 U/L (73-393) H 05/17/19 08:40 Physical Awake/ weak supple +ve icterus cvs- s1, s2 rrr abd- soft . +ve tenderness + ext- no edema neuro- alert/ awake a/p Billary Pancreatitis Improved chemistries mri Reviewed Monitor labs also-- cbc -- wbc also -- If rise concern for Necrosis pain control will follow keep npo Problem List - Problems (1) Acute gallstone pancreatitis Code(s): K85.10 - BILIARY ACUTE PANCREATITIS WITHOUT NECROSIS OR INFECTION
--- NOTE | 2019-05-17 12:06 | PN ---
Progress Note (short form) - Note Progress Note: Pt feels distended, has been taking morphine; wants something to drink. Abdomen: hypoactive bowel sounds. Labs: CMP Sodium 138 mmol/L (136-145) 05/17/19 08:40 Potassium 3.8 mmol/L (3.5-5.1) 05/17/19 08:40 Chloride 107 mmol/L (98-107) 05/17/19 08:40 Carbon Dioxide 22 mmol/L (21-32) 05/17/19 08:40 Anion Gap 9 MMOL/L (8-16) 05/17/19 08:40 BUN 17.9 mg/dL (7-18) 05/17/19 08:40 Creatinine 0.9 mg/dL (0.55-1.3) 05/17/19 08:40 Est GFR (CKD-EPI)AfAm 69.99 05/17/19 08:40 Est GFR (CKD-EPI)NonAf 60.39 05/17/19 08:40 Random Glucose 100 mg/dL (74-106) 05/17/19 08:40 Lactic Acid 1.5 mmol/L (0.4-2.0) 05/16/19 02:29 Calcium 8.4 mg/dL (8.5-10.1) L 05/17/19 08:40 Total Bilirubin 1.5 mg/dL (0.2-1) H D 05/17/19 08:40 AST 70 U/L (15-37) H 05/17/19 08:40 ALT 151 U/L (13-61) H 05/17/19 08:40 Alkaline Phosphatase 113 U/L (45-117) 05/17/19 08:40 Troponin I < 0.02 ng/ml (0.00-0.05) 05/15/19 12:00 C-Reactive Protein 23.4 MG/DL (0.00-0.3) H 05/17/19 08:40 Total Protein 5.2 g/dl (6.4-8.2) L 05/17/19 08:40 Albumin 2.7 g/dl (3.4-5.0) L 05/17/19 08:40 Lipase 1109 U/L (73-393) H 05/17/19 08:40 Lipase, liver chemistries improved, but WBC increased: CBC WBC 19.2 K/mm3 (4.0-10.0) H 05/17/19 08:40 RBC 4.52 M/mm3 (3.60-5.2) 05/17/19 08:40 Hgb 12.9 GM/dL (10.7-15.3) 05/17/19 08:40 Hct 39.6 % (32.4-45.2) 05/17/19 08:40 MCV 87.7 fl (80-96) 05/17/19 08:40 MCH 28.5 pg (25.7-33.7) 05/17/19 08:40 MCHC 32.5 g/dl (32.0-36.0) 05/17/19 08:40 RDW 15.1 % (11.6-15.6) 05/17/19 08:40 Plt Count 175 K/MM3 (134-434) D 05/17/19 08:40 MPV 9.5 fl (7.5-11.1) 05/17/19 08:40 Absolute Neuts (auto) 16.8 K/mm3 (1.5-8.0) H 05/17/19 08:40 Neutrophils % 87.5 % (42.8-82.8) H 05/17/19 08:40 Neutrophils % (Manual) 85.0 % (42.8-82.8) H 05/16/19 08:38 Band Neutrophils % 7.0 % 05/16/19 08:38 Lymphocytes % 5.5 % (8-40) L D 05/17/19 08:40 Lymphocytes % (Manual) 1.0 % (8-40) L D 05/16/19 08:38 Monocytes % 6.9 % (3.8-10.2) 05/17/19 08:40 Monocytes % (Manual) 5 % (3.8-10.2) 05/16/19 08:38 Eosinophils % 0.0 % (0-4.5) 05/17/19 08:40 Eosinophils % (Manual) 0.0 % (0-4.5) 05/16/19 08:38 Basophils % 0.1 % (0-2.0) 05/17/19 08:40 Basophils % (Manual) 0.0 % (0-2.0) 05/16/19 08:38 Myelocytes % (Man) 1 % (0-2) D 05/16/19 08:38 Promyelocytes % (Man) 0 % (0-2) 05/16/19 08:38 Blast Cells % (Manual) 0 % (0-0) 05/16/19 08:38 Nucleated RBC % 0 % (0-0) 05/17/19 08:40 Metamyelocytes 1 % (0-2) D 05/16/19 08:38 Hypochromia 0 05/16/19 08:38 Platelet Estimate Normal 05/16/19 08:38 Polychromasia 0 05/16/19 08:38 Poikilocytosis 0 05/16/19 08:38 Anisocytosis 0 05/16/19 08:38 Microcytosis 0 05/16/19 08:38 Macrocytosis 0 05/16/19 08:38 Impression: Suspect the elevated WBC reflects pancreatic injury and less likely active infection. To allow full liquid diet as tolerated. If WBC continues to rise will need repeat imaging to assess for pancreatic necrosis/abscess. Necrosis/abscess may not be detected early in course and imaging would best be deferred until next week for best sensitivity.
--- NOTE | 2019-05-17 15:16 | PN ---
Progress Note, Physician History of Present Illness: Pt with gallstone pancreatitis, most of pancreatic inflammation in tail region, though also some stranding at head. GI is also following. She is seen and examined sitting up at edge of bed, with family present - daughters assisted with Mongolian at bedside. She reports feeling about the same, pain is across upper abdomen, both sides and epigastric, maybe a little more to left. No further vomiting or diarrhea. Labs are trending down, except wbc is up to 19. She is getting IV fluids and antibiotics (per ID). Tolerated a few bites of full liquid diet for lunch, but is apprehensive about possible increase in pain. She is able to ambulate, and did get up to use the bathroom, though has been resting more, as medication makes her sleepy. - Current Medication List Current Medications: Active Medications Metronidazole (Flagyl 500mg Premixed Ivpb -) 500 mg in 100 mls @ 100 mls/hr IVPB Q8H-IV JOHN Last Admin: 05/17/19 09:29 Dose: 100 mls/hr Lactated Ringer's (Lactated Ringers Solution) 1,000 ml in 1,000 mls @ 200 mls/ hr IV ASDIR JOHN Last Admin: 05/16/19 18:18 Dose: 200 mls/hr Aztreonam 2 gm/ Dextrose 100 mls @ 100 mls/hr IVPB Q8H-IV JOHN; Protocol Last Admin: 05/17/19 10:49 Dose: 100 mls/hr Vancomycin HCl (Vancomycin (Pre-Docked)) 1,000 mg in 250 mls @ 166.667 mls/hr IVPB Q24H JOHN; Protocol Last Admin: 05/17/19 00:10 Dose: 166.667 mls/hr Morphine Sulfate (Morphine Sulfate) 2 mg IVPUSH Q3H PRN PRN Reason: PAIN LEVEL 6-10 Last Admin: 05/17/19 12:31 Dose: 2 mg Ondansetron HCl (Zofran Injection) 4 mg IVPUSH Q4H PRN PRN Reason: NAUSEA AND/OR VOMITING Last Admin: 05/15/19 18:49 Dose: 4 mg Pantoprazole Sodium (Protonix Iv) 40 mg IVPUSH DAILY JOHN Last Admin: 05/17/19 09:31 Dose: 40 mg - Objective Vital Signs: Vital Signs Temperature 99.3 F 05/17/19 14:15 Pulse Rate 95 H 05/17/19 10:00 Respiratory Rate 20 05/17/19 10:00 Blood Pressure 142/78 05/17/19 10:00 O2 Sat by Pulse Oximetry (%) 93 L 05/16/19 21:00 Constitutional: Yes: Well Nourished, No Distress, Calm Eyes: Yes: Conjunctiva Clear, EOM Intact. No: Sclera Icterus HENT: Yes: Atraumatic, Normocephalic Gastrointestinal: Yes: Soft, Tenderness (bilateral upper quadrants, mild), Tenderness, Epigastrium Extremities: No: Cool, Cyanosis Integumentary: No: Jaundice, Rash Neurological: Yes: Alert, Oriented. No: Unsteady Gait Labs: CBC, BMP 05/17/19 08:40 05/17/19 08:40 INR, PTT INR 1.54 (0.83-1.09) H 05/17/19 08:40 CMP Sodium 138 mmol/L (136-145) 05/17/19 08:40 Potassium 3.8 mmol/L (3.5-5.1) 05/17/19 08:40 Chloride 107 mmol/L (98-107) 05/17/19 08:40 Carbon Dioxide 22 mmol/L (21-32) 05/17/19 08:40 Anion Gap 9 MMOL/L (8-16) 05/17/19 08:40 BUN 17.9 mg/dL (7-18) 05/17/19 08:40 Creatinine 0.9 mg/dL (0.55-1.3) 05/17/19 08:40 Est GFR (CKD-EPI)AfAm 69.99 05/17/19 08:40 Est GFR (CKD-EPI)NonAf 60.39 05/17/19 08:40 Random Glucose 100 mg/dL (74-106) 05/17/19 08:40 Lactic Acid 1.5 mmol/L (0.4-2.0) 05/16/19 02:29 Calcium 8.4 mg/dL (8.5-10.1) L 05/17/19 08:40 Total Bilirubin 1.5 mg/dL (0.2-1) H D 05/17/19 08:40 AST 70 U/L (15-37) H 05/17/19 08:40 ALT 151 U/L (13-61) H 05/17/19 08:40 Alkaline Phosphatase 113 U/L (45-117) 05/17/19 08:40 Troponin I < 0.02 ng/ml (0.00-0.05) 05/15/19 12:00 C-Reactive Protein 23.4 MG/DL (0.00-0.3) H 05/17/19 08:40 Total Protein 5.2 g/dl (6.4-8.2) L 05/17/19 08:40 Albumin 2.7 g/dl (3.4-5.0) L 05/17/19 08:40 Lipase 1109 U/L (73-393) H 05/17/19 08:40 wbc up better hydrated lipase and LFTs trending down Problem List - Problems (1) Acute gallstone pancreatitis Assessment/Plan: continue generous IV hydration pain meds prn - consider nonnarcotics first line (tylenol?) GI/DVT prophylaxis, continue PPI as at home antibiotics per ID labs trending down, but WBC up discussed with Dr. Kc - related to pancreatitis vs gallbladder most likely evolving pancreatic changes, possible developing necrosis pain and tenderness similar to yesterday ok for clear liquids for now - watch for increasing pain or tenderness, or vomiting ok to continue home bp med and gabapentin agree with Dr. Kc, will probably consider re-CT with IV contrast Sunday to reevaluate pancreas timing of cholecystectomy depends on evolution of pancreatitis and clinical status following with you Code(s): K85.10 - BILIARY ACUTE PANCREATITIS WITHOUT NECROSIS OR INFECTION (2) Epigastric pain Code(s): R10.13 - EPIGASTRIC PAIN (3) Nausea and vomiting Assessment/Plan: resolved Code(s): R11.2 - NAUSEA WITH VOMITING, UNSPECIFIED Qualifiers: Vomiting type: unspecified Vomiting Intractability: non-intractable Qualified Code(s): R11.2 - Nausea with vomiting, unspecified (4) Hypertension Code(s): I10 - ESSENTIAL (PRIMARY) HYPERTENSION Qualifiers: Hypertension type: essential hypertension Qualified Code(s): I10 - Essential (primary) hypertension
[2019-05-17] MEDS: LACTATED RINGERS SOLUTION 1,000 ML/1,000 ML INFUS.BAG IV SCH ×2 (17:10→21:03)
--- NOTE | 2019-05-17 18:10 | PN ---
Progress Note, Physician History of Present Illness: AWAKE. SUPINE IN BED DAUGHTER IN ATTENDANCE REPORTS ABDOMINAL PAIN AFEBRILE WBC INCREASED - Current Medication List Current Medications: Active Medications Metronidazole (Flagyl 500mg Premixed Ivpb -) 500 mg in 100 mls @ 100 mls/hr IVPB Q8H-IV JOHN Last Admin: 05/17/19 17:10 Dose: 100 mls/hr Lactated Ringer's (Lactated Ringers Solution) 1,000 ml in 1,000 mls @ 200 mls/ hr IV ASDIR JOHN Last Admin: 05/17/19 17:10 Dose: 200 mls/hr Aztreonam 2 gm/ Dextrose 100 mls @ 100 mls/hr IVPB Q8H-IV JOHN; Protocol Last Admin: 05/17/19 17:10 Dose: 100 mls/hr Vancomycin HCl (Vancomycin (Pre-Docked)) 1,000 mg in 250 mls @ 166.667 mls/hr IVPB Q24H JOHN; Protocol Last Admin: 05/17/19 00:10 Dose: 166.667 mls/hr Morphine Sulfate (Morphine Sulfate) 2 mg IVPUSH Q3H PRN PRN Reason: PAIN LEVEL 6-10 Last Admin: 05/17/19 12:31 Dose: 2 mg Ondansetron HCl (Zofran Injection) 4 mg IVPUSH Q4H PRN PRN Reason: NAUSEA AND/OR VOMITING Last Admin: 05/15/19 18:49 Dose: 4 mg Pantoprazole Sodium (Protonix Iv) 40 mg IVPUSH DAILY [facility] Last Admin: 05/17/19 09:31 Dose: 40 mg - Objective Vital Signs: Vital Signs Temperature 99.3 F 05/17/19 14:15 Pulse Rate 95 H 05/17/19 10:00 Respiratory Rate 20 05/17/19 10:00 Blood Pressure 142/78 05/17/19 10:00 O2 Sat by Pulse Oximetry (%) 93 L 05/16/19 21:00 Constitutional: Yes: No Distress Cardiovascular: Yes: Regular Rate and Rhythm, S1, S2 Respiratory: Yes: CTA Bilaterally Gastrointestinal: Yes: Normal Bowel Sounds, Soft, Other (+ EPIGASTRIC TENDERNESS ) Edema: No Labs: CBC, BMP 05/17/19 08:40 05/17/19 08:40 INR, PTT INR 1.54 (0.83-1.09) H 05/17/19 08:40 Assessment/Plan ACUTE PANCREATITIS LEUKOCYTOSIS PCN ALLERGY GI FOLLOW UP APPRECIATED CONTINUE VANCO/AZTREONAM/FLAGYL DISCUSSED WITH DAUGHTER AT BEDSIDE
[2019-05-18] MEDS: VANCOMYCIN 1 GRAM (PRE-DOCKED) 1,000 MG/250 ML BAG IVPB SCH (00:11)
[2019-05-18] MEDS ORDERED: PT OWN MED DRAWER 7, Y5N ONE (02:19)
[2019-05-18] MEDS: AZTREONAM 2 GM in DEXTROSE 5%-WATER 100 ML IVPB SCH ×3 (02:21→17:41)
[2019-05-18 06:59] LABS: BASO % 0.2 % (0-2.0); HEMOGLOBIN 11.9 GM/dL (10.7-15.3); LYMPH % 6.7 % (8-40); MCH 28.5 pg (25.7-33.7); MCHC 33.1 g/dl (32.0-36.0); MEAN PLT VOLUME 9.4 fl (7.5-11.1); MONO % 8.1 % (3.8-10.2); PLATELET COUNT 157 K/MM3 (134-434); RBC 4.19 M/mm3 (3.60-5.2); RDW 15.1 % (11.6-15.6); WHITE BLOOD COUNT 15.8 K/mm3 (4.0-10.0)
[2019-05-18 07:19] LABS: ALBUMIN 2.3 g/dl (3.4-5.0); BILIRUBIN,TOTAL 1.4 mg/dL (0.2-1); BLOOD UREA NITROGEN 12.2 mg/dL (7-18); CALCIUM 7.9 mg/dL (8.5-10.1); CREATININE 0.7 mg/dL (0.55-1.3); POTASSIUM 3.1 mmol/L (3.5-5.1); TOT PROT 4.8 g/dl (6.4-8.2)
[2019-05-18] MEDS: PANTOPRAZOLE SODIUM 40 MG VIAL IVPUSH SCH (09:28)
--- NOTE | 2019-05-18 10:21 | PN ---
Progress Note (short form) - Note Progress Note: Tolerating small amounts of clear liquids but states she is not hungry and does not feel she can eat more. States her pain is less. Labs are also suggestive of improvement, with decrease in WBC and liver chemistries: CBC WBC 15.8 K/mm3 (4.0-10.0) H 05/18/19 06:33 RBC 4.19 M/mm3 (3.60-5.2) 05/18/19 06:33 Hgb 11.9 GM/dL (10.7-15.3) 05/18/19 06:33 Hct 36.0 % (32.4-45.2) 05/18/19 06:33 MCV 86.0 fl (80-96) 05/18/19 06:33 MCH 28.5 pg (25.7-33.7) 05/18/19 06:33 MCHC 33.1 g/dl (32.0-36.0) 05/18/19 06:33 RDW 15.1 % (11.6-15.6) 05/18/19 06:33 Plt Count 157 K/MM3 (134-434) 05/18/19 06:33 MPV 9.4 fl (7.5-11.1) 05/18/19 06:33 Absolute Neuts (auto) 13.5 K/mm3 (1.5-8.0) H 05/18/19 06:33 Neutrophils % 85.0 % (42.8-82.8) H 05/18/19 06:33 Neutrophils % (Manual) 85.0 % (42.8-82.8) H 05/16/19 08:38 Band Neutrophils % 7.0 % 05/16/19 08:38 Lymphocytes % 6.7 % (8-40) L D 05/18/19 06:33 Lymphocytes % (Manual) 1.0 % (8-40) L D 05/16/19 08:38 Monocytes % 8.1 % (3.8-10.2) 05/18/19 06:33 Monocytes % (Manual) 5 % (3.8-10.2) 05/16/19 08:38 Eosinophils % 0.0 % (0-4.5) 05/18/19 06:33 Eosinophils % (Manual) 0.0 % (0-4.5) 05/16/19 08:38 Basophils % 0.2 % (0-2.0) 05/18/19 06:33 Basophils % (Manual) 0.0 % (0-2.0) 05/16/19 08:38 Myelocytes % (Man) 1 % (0-2) D 05/16/19 08:38 Promyelocytes % (Man) 0 % (0-2) 05/16/19 08:38 Blast Cells % (Manual) 0 % (0-0) 05/16/19 08:38 Nucleated RBC % 0 % (0-0) 05/18/19 06:33 Metamyelocytes 1 % (0-2) D 05/16/19 08:38 Hypochromia 0 05/16/19 08:38 Platelet Estimate Normal 05/16/19 08:38 Polychromasia 0 05/16/19 08:38 Poikilocytosis 0 05/16/19 08:38 Anisocytosis 0 05/16/19 08:38 Microcytosis 0 05/16/19 08:38 Macrocytosis 0 05/16/19 08:38 Hepatic Panel Total Bilirubin 1.4 mg/dL (0.2-1) H 05/18/19 06:33 AST 36 U/L (15-37) 05/18/19 06:33 ALT 90 U/L (13-61) H 05/18/19 06:33 Alkaline Phosphatase 90 U/L (45-117) 05/18/19 06:33 Albumin 2.3 g/dl (3.4-5.0) L 05/18/19 06:33 Abdomen now soft to exam. Chest clear. At this point I have cut back on her IV fluid to 3 L/day. If she takes more liquid p.o. would cut it down further. Vigorous hydration has no doubt helped her recover from pancreatitis but we have to be careful not to push it too long on an 78 year old woman. So far there is no sign of any CHF or fluid overload.
[2019-05-18] MEDS: LACTATED RINGERS SOLUTION 1,000 ML/1,000 ML INFUS.BAG IV SCH (12:11)
--- NOTE | 2019-05-18 12:14 | PN ---
Progress Note, Physician History of Present Illness: OOB IN CHAIR AWAKE, ALERT APPEARS COMFORTABLE LOW GRADE TEMP WBC/ LFTS/LIPASE IMPROVED BC (-) TOLERATING ANTIBIOTICS - Current Medication List Current Medications: Active Medications Metronidazole (Flagyl 500mg Premixed Ivpb -) 500 mg in 100 mls @ 100 mls/hr IVPB Q8H-IV JOHN Last Admin: 05/18/19 09:27 Dose: 100 mls/hr Aztreonam 2 gm/ Dextrose 100 mls @ 100 mls/hr IVPB Q8H-IV JOHN; Protocol Last Admin: 05/18/19 09:25 Dose: 100 mls/hr Vancomycin HCl (Vancomycin (Pre-Docked)) 1,000 mg in 250 mls @ 166.667 mls/hr IVPB Q24H JOHN; Protocol Last Admin: 05/18/19 00:11 Dose: 166.667 mls/hr Lactated Ringer's (Lactated Ringers Solution) 1,000 ml in 1,000 mls @ 125 mls/ hr IV ASDIR JOHN Morphine Sulfate (Morphine Sulfate) 2 mg IVPUSH Q3H PRN PRN Reason: PAIN LEVEL 6-10 Last Admin: 05/17/19 12:31 Dose: 2 mg Ondansetron HCl (Zofran Injection) 4 mg IVPUSH Q4H PRN PRN Reason: NAUSEA AND/OR VOMITING Last Admin: 05/15/19 18:49 Dose: 4 mg Pantoprazole Sodium (Protonix Iv) 40 mg IVPUSH DAILY JOHN Last Admin: 05/18/19 09:28 Dose: 40 mg - Objective Vital Signs: Vital Signs Temperature 98.4 F 05/18/19 10:00 Pulse Rate 94 H 05/18/19 10:00 Respiratory Rate 18 05/18/19 10:00 Blood Pressure 132/71 05/18/19 10:00 O2 Sat by Pulse Oximetry (%) 92 L 05/17/19 21:00 Constitutional: Yes: No Distress Cardiovascular: Yes: Regular Rate and Rhythm, S1, S2 Respiratory: Yes: CTA Bilaterally Gastrointestinal: Yes: Normal Bowel Sounds, Soft, Other (MILD BILATERAL UPPER QUAD TENDERNESS) Edema: No Labs: CBC, BMP 05/18/19 06:33 05/18/19 06:33 INR, PTT INR 1.54 (0.83-1.09) H 05/17/19 08:40 Assessment/Plan ACUTE PANCREATITIS CLINICALLY IMPROVED LEUKOCYTOSIS IMPROVED PCN ALLERGY GI FOLLOW UP APPRECIATED CONTINUE VANCO/AZTREONAM/FLAGYL DISCUSSED WITH DAUGHTER AT BEDSIDE
--- NOTE | 2019-05-18 13:36 | PN ---
Progress Note (short form) - Note Progress Note: Better tolerating liquids pain improved lfts/ wbc coming down family at bedside Vital Signs Temp 98.4 F 05/18/19 10:00 Pulse 94 H 05/18/19 10:00 Resp 18 05/18/19 10:00 BP 132/71 05/18/19 10:00 Pulse Ox 92 L 05/17/19 21:00 Intake & Output 05/17/19 05/18/19 05/18/19 23:59 11:59 23:59 Intake Total 2320 2410 Balance 2320 2410 Intake: IV 2000 1500 LACTATED RINGERS SOLUTION 2000 1500 1,000 ml In 1,000 ml @ 200 mls/hr IV ASDIR JOHN Rx#:[id number] IVPB 200 450 Oral 120 460 Other: Voiding Method Toilet Toilet # Unmeasured Voids Void 2 2 Bowel Movement No Active Medications Metronidazole (Flagyl 500mg Premixed Ivpb -) 500 mg in 100 mls @ 100 mls/hr IVPB Q8H-IV JOHN Last Admin: 05/18/19 09:27 Dose: 100 mls/hr Aztreonam 2 gm/ Dextrose 100 mls @ 100 mls/hr IVPB Q8H-IV JOHN; Protocol Last Admin: 05/18/19 09:25 Dose: 100 mls/hr Vancomycin HCl (Vancomycin (Pre-Docked)) 1,000 mg in 250 mls @ 166.667 mls/hr IVPB Q24H JOHN; Protocol Last Admin: 05/18/19 00:11 Dose: 166.667 mls/hr Lactated Ringer's (Lactated Ringers Solution) 1,000 ml in 1,000 mls @ 125 mls/ hr IV ASDIR JOHN Potassium Chloride (Potassium Chloride 10 Meq Premix Ivpb -) 10 meq in 100 mls @ 100 mls/hr IVPB Q60M JOHN Stop: 05/18/19 16:29 Morphine Sulfate (Morphine Sulfate) 2 mg IVPUSH Q3H PRN PRN Reason: PAIN LEVEL 6-10 Last Admin: 05/17/19 12:31 Dose: 2 mg Ondansetron HCl (Zofran Injection) 4 mg IVPUSH Q4H PRN PRN Reason: NAUSEA AND/OR VOMITING Last Admin: 05/15/19 18:49 Dose: 4 mg Pantoprazole Sodium (Protonix Iv) 40 mg IVPUSH DAILY JOHN Last Admin: 05/18/19 09:28 Dose: 40 mg CBC,CMP WBC 15.8 K/mm3 (4.0-10.0) H 05/18/19 06:33 RBC 4.19 M/mm3 (3.60-5.2) 05/18/19 06:33 Hgb 11.9 GM/dL (10.7-15.3) 05/18/19 06:33 Hct 36.0 % (32.4-45.2) 05/18/19 06:33 MCV 86.0 fl (80-96) 05/18/19 06:33 MCH 28.5 pg (25.7-33.7) 05/18/19 06:33 MCHC 33.1 g/dl (32.0-36.0) 05/18/19 06:33 RDW 15.1 % (11.6-15.6) 05/18/19 06:33 Plt Count 157 K/MM3 (134-434) 05/18/19 06:33 MPV 9.4 fl (7.5-11.1) 05/18/19 06:33 Absolute Neuts (auto) 13.5 K/mm3 (1.5-8.0) H 05/18/19 06:33 Neutrophils % 85.0 % (42.8-82.8) H 05/18/19 06:33 Neutrophils % (Manual) 85.0 % (42.8-82.8) H 05/16/19 08:38 Band Neutrophils % 7.0 % 05/16/19 08:38 Lymphocytes % 6.7 % (8-40) L D 05/18/19 06:33 Lymphocytes % (Manual) 1.0 % (8-40) L D 05/16/19 08:38 Monocytes % 8.1 % (3.8-10.2) 05/18/19 06:33 Monocytes % (Manual) 5 % (3.8-10.2) 05/16/19 08:38 Eosinophils % 0.0 % (0-4.5) 05/18/19 06:33 Eosinophils % (Manual) 0.0 % (0-4.5) 05/16/19 08:38 Basophils % 0.2 % (0-2.0) 05/18/19 06:33 Basophils % (Manual) 0.0 % (0-2.0) 05/16/19 08:38 Myelocytes % (Man) 1 % (0-2) D 05/16/19 08:38 Promyelocytes % (Man) 0 % (0-2) 05/16/19 08:38 Blast Cells % (Manual) 0 % (0-0) 05/16/19 08:38 Nucleated RBC % 0 % (0-0) 05/18/19 06:33 Metamyelocytes 1 % (0-2) D 05/16/19 08:38 Hypochromia 0 05/16/19 08:38 Platelet Estimate Normal 05/16/19 08:38 Polychromasia 0 05/16/19 08:38 Poikilocytosis 0 05/16/19 08:38 Anisocytosis 0 05/16/19 08:38 Microcytosis 0 05/16/19 08:38 Macrocytosis 0 05/16/19 08:38 Sodium 137 mmol/L (136-145) 05/18/19 06:33 Potassium 3.1 mmol/L (3.5-5.1) L 05/18/19 06:33 Chloride 107 mmol/L (98-107) 05/18/19 06:33 Carbon Dioxide 22 mmol/L (21-32) 05/18/19 06:33 Anion Gap 8 MMOL/L (8-16) 05/18/19 06:33 BUN 12.2 mg/dL (7-18) 05/18/19 06:33 Creatinine 0.7 mg/dL (0.55-1.3) 05/18/19 06:33 Est GFR (CKD-EPI)AfAm 94.84 05/18/19 06:33 Est GFR (CKD-EPI)NonAf 81.83 05/18/19 06:33 Random Glucose 113 mg/dL (74-106) H 05/18/19 06:33 Lactic Acid 1.5 mmol/L (0.4-2.0) 05/16/19 02:29 Calcium 7.9 mg/dL (8.5-10.1) L 05/18/19 06:33 Total Bilirubin 1.4 mg/dL (0.2-1) H 05/18/19 06:33 AST 36 U/L (15-37) 05/18/19 06:33 ALT 90 U/L (13-61) H 05/18/19 06:33 Alkaline Phosphatase 90 U/L (45-117) 05/18/19 06:33 Troponin I < 0.02 ng/ml (0.00-0.05) 05/15/19 12:00 C-Reactive Protein 23.4 MG/DL (0.00-0.3) H 05/17/19 08:40 Total Protein 4.8 g/dl (6.4-8.2) L 05/18/19 06:33 Albumin 2.3 g/dl (3.4-5.0) L 05/18/19 06:33 Lipase 262 U/L (73-393) 05/18/19 06:33 Physical Awake/ Better supple cvs- s1, s2 rrr abd- soft . decreased tenderness ext- no edema neuro- alert/ awake a/p Billary Pancreatitis Improved chemistries pain control will follow supplement k Problem List - Problems (1) Acute gallstone pancreatitis Code(s): K85.10 - BILIARY ACUTE PANCREATITIS WITHOUT NECROSIS OR INFECTION
[2019-05-18] MEDS: KCL 10 MEQ IVPB 10 MEQ/100 ML INFUS.BAG IVPB SCH ×3 (14:11→17:42)
--- NOTE | 2019-05-18 16:36 | PN ---
Progress Note, Physician History of Present Illness: Pt with gallstone pancreatitis, most of pancreatic inflammation in tail region, though also some stranding at head. GI is also following. She is seen and examined in bed, with family present - daughter assisted with Bel[place]ian at bedside. She reports feeling a little better. No vomiting, tolerating clears but not having much. Labs are trending down, wbc is down to 15 today. She is getting IV fluids and antibiotics (per ID). She was up in chair for a short time earlier per family. Able to ambulate but not walking much. She does c/o back pain. - Current Medication List Current Medications: Active Medications Metronidazole (Flagyl 500mg Premixed Ivpb -) 500 mg in 100 mls @ 100 mls/hr IVPB Q8H-IV JOHN Last Admin: 05/18/19 09:27 Dose: 100 mls/hr Aztreonam 2 gm/ Dextrose 100 mls @ 100 mls/hr IVPB Q8H-IV JOHN; Protocol Last Admin: 05/18/19 09:25 Dose: 100 mls/hr Vancomycin HCl (Vancomycin (Pre-Docked)) 1,000 mg in 250 mls @ 166.667 mls/hr IVPB Q24H JOHN; Protocol Last Admin: 05/18/19 00:11 Dose: 166.667 mls/hr Lactated Ringer's (Lactated Ringers Solution) 1,000 ml in 1,000 mls @ 125 mls/ hr IV ASDIR JOHN Last Admin: 05/18/19 12:11 Dose: 125 mls/hr Morphine Sulfate (Morphine Sulfate) 2 mg IVPUSH Q3H PRN PRN Reason: PAIN LEVEL 6-10 Last Admin: 05/17/19 12:31 Dose: 2 mg Ondansetron HCl (Zofran Injection) 4 mg IVPUSH Q4H PRN PRN Reason: NAUSEA AND/OR VOMITING Last Admin: 05/15/19 18:49 Dose: 4 mg Pantoprazole Sodium (Protonix Iv) 40 mg IVPUSH DAILY JOHN Last Admin: 05/18/19 09:28 Dose: 40 mg - Objective Vital Signs: Vital Signs Temperature 99.6 F 05/18/19 13:43 Pulse Rate 94 H 05/18/19 10:00 Respiratory Rate 18 05/18/19 10:00 Blood Pressure 132/71 05/18/19 10:00 O2 Sat by Pulse Oximetry (%) 92 L 05/17/19 21:00 Constitutional: Yes: Well Nourished, No Distress, Calm Eyes: Yes: Conjunctiva Clear, EOM Intact. No: Sclera Icterus HENT: Yes: Atraumatic, Normocephalic Gastrointestinal: Yes: Soft. No: Distention, Tenderness (bilateral upper quadrants without tenderness now), Tenderness, Epigastrium (nontender in epigastrium) Genitourinary: Yes: CVA Tenderness - Left (mild), CVA Tenderness - Right (mild) Musculoskeletal: Yes: Back Pain (pt complains of back pain, mildly tender at both sides) Extremities: No: Cool, Cyanosis Integumentary: No: Jaundice, Rash Neurological: Yes: Alert, Oriented Labs: CBC, BMP 05/18/19 06:33 05/18/19 06:33 CMP Sodium 137 mmol/L (136-145) 05/18/19 06:33 Potassium 3.1 mmol/L (3.5-5.1) L 05/18/19 06:33 Chloride 107 mmol/L (98-107) 05/18/19 06:33 Carbon Dioxide 22 mmol/L (21-32) 05/18/19 06:33 Anion Gap 8 MMOL/L (8-16) 05/18/19 06:33 BUN 12.2 mg/dL (7-18) 05/18/19 06:33 Creatinine 0.7 mg/dL (0.55-1.3) 05/18/19 06:33 Est GFR (CKD-EPI)AfAm 94.84 05/18/19 06:33 Est GFR (CKD-EPI)NonAf 81.83 05/18/19 06:33 Random Glucose 113 mg/dL (74-106) H 05/18/19 06:33 Lactic Acid 1.5 mmol/L (0.4-2.0) 05/16/19 02:29 Calcium 7.9 mg/dL (8.5-10.1) L 05/18/19 06:33 Total Bilirubin 1.4 mg/dL (0.2-1) H 05/18/19 06:33 AST 36 U/L (15-37) 05/18/19 06:33 ALT 90 U/L (13-61) H 05/18/19 06:33 Alkaline Phosphatase 90 U/L (45-117) 05/18/19 06:33 Troponin I < 0.02 ng/ml (0.00-0.05) 05/15/19 12:00 C-Reactive Protein 23.4 MG/DL (0.00-0.3) H 05/17/19 08:40 Total Protein 4.8 g/dl (6.4-8.2) L 05/18/19 06:33 Albumin 2.3 g/dl (3.4-5.0) L 05/18/19 06:33 Lipase 262 U/L (73-393) 05/18/19 06:33 K+ being repleted wbc down a bit LFTs down, almost all normal except bili, trending down lipase down to normal Problem List - Problems (1) Acute gallstone pancreatitis Assessment/Plan: pain and tenderness better than yesterday keep on clear liquids for now - watch for increasing pain or tenderness, or vomiting continue IV hydration, decreased now that tolerating some clears and pt improving ok to continue home bp med and gabapentin pain meds prn - consider nonnarcotics first line (tylenol) GI/DVT prophylaxis antibiotics per ID labs trending down, including wbc today replete lytes trend labs encourage sitting up/OOB, ambulation as able incentive spirometer may consider re-CT with IV contrast Sunday to reevaluate pancreas timing of cholecystectomy depends on evolution of pancreatitis and clinical status following with you Code(s): K85.10 - BILIARY ACUTE PANCREATITIS WITHOUT NECROSIS OR INFECTION (2) Epigastric pain Assessment/Plan: improved Code(s): R10.13 - EPIGASTRIC PAIN (3) Hypertension Code(s): I10 - ESSENTIAL (PRIMARY) HYPERTENSION Qualifiers: Hypertension type: essential hypertension Qualified Code(s): I10 - Essential (primary) hypertension
[2019-05-19] MEDS: VANCOMYCIN 1 GRAM (PRE-DOCKED) 1,000 MG/250 ML BAG IVPB SCH (02:00)
[2019-05-19] MEDS: AZTREONAM 2 GM in DEXTROSE 5%-WATER 100 ML IVPB SCH ×3 (02:29→17:02)
[2019-05-19 06:51] LABS: BASO % 0.3 % (0-2.0); EOS % 0.4 % (0-4.5); HEMATOCRIT 33.2 % (32.4-45.2); LYMPH % 7.8 % (8-40); MCH 28.3 pg (25.7-33.7); MEAN CELL VOLUME 85.8 fl (80-96); MEAN PLT VOLUME 9.3 fl (7.5-11.1); MONO % 12.3 % (3.8-10.2); NEUT % 79.2 % (42.8-82.8); PLATELET COUNT 186 K/MM3 (134-434); RBC 3.87 M/mm3 (3.60-5.2); RDW 15.1 % (11.6-15.6); WHITE BLOOD COUNT 14.2 K/mm3 (4.0-10.0)
[2019-05-19 07:27] LABS: ALBUMIN 2.2 g/dl (3.4-5.0); BILIRUBIN,TOTAL 0.9 mg/dL (0.2-1); BLOOD UREA NITROGEN 10.6 mg/dL (7-18); CALCIUM 7.9 mg/dL (8.5-10.1); CREATININE 0.6 mg/dL (0.55-1.3); POTASSIUM 3.2 mmol/L (3.5-5.1); TOT PROT 4.6 g/dl (6.4-8.2)
[2019-05-19] MEDS: PANTOPRAZOLE SODIUM 40 MG VIAL IVPUSH SCH (09:33)
[2019-05-19] MEDS: LACTATED RINGERS SOLUTION 1,000 ML/1,000 ML INFUS.BAG IV SCH (09:34)
--- NOTE | 2019-05-19 11:26 | PN ---
Progress Note (short form) - Note Progress Note: Continue to improve feels and looks better pain better family at bedside not drinking much Vital Signs Temp 98.8 F 05/19/19 05:23 Pulse 94 H 05/19/19 05:23 Resp 18 05/19/19 05:23 BP 137/70 05/19/19 05:23 Pulse Ox 95 05/18/19 21:00 Intake & Output 05/18/19 05/18/19 05/19/19 11:59 23:59 11:59 Intake Total 2410 2620 1900 Balance 2410 2620 1900 Intake: IV 1500 1600 1500 LACTATED RINGERS SOLUTION 1600 1500 1,000 ml In 1,000 ml @ 125 mls/hr IV ASDIR JOHN Rx#:[id number] LACTATED RINGERS SOLUTION 1500 1,000 ml In 1,000 ml @ 200 mls/hr IV ASDIR JOHN Rx#:[id number] IVPB 450 600 400 Oral 460 420 Other: Voiding Method Toilet Toilet Toilet # Unmeasured Voids Void 2 4 2 Bowel Movement No No CBC, BMP 05/19/19 06:15 05/19/19 06:15 Hepatic Panel Total Bilirubin 0.9 mg/dL (0.2-1) 05/19/19 06:15 AST 29 U/L (15-37) 05/19/19 06:15 ALT 64 U/L (13-61) H 05/19/19 06:15 Alkaline Phosphatase 82 U/L (45-117) 05/19/19 06:15 Albumin 2.2 g/dl (3.4-5.0) L 05/19/19 06:15 Physical Awake/ Better supple cvs- s1, s2 rrr abd- soft . decreased tenderness ext- no edema neuro- alert/ awake a/p Billary Pancreatitis Improved chemistries pain control fluids Encourged drinking will follow supplement k d/w rn also Problem List - Problems (1) Acute gallstone pancreatitis Code(s): K85.10 - BILIARY ACUTE PANCREATITIS WITHOUT NECROSIS OR INFECTION
[2019-05-19] MEDS: KCL 10 MEQ IVPB 10 MEQ/100 ML INFUS.BAG IVPB SCH ×3 (11:55→14:32)
[2019-05-19] MEDS ORDERED: D5-1/2NS+20 MEQ KCL - 20 MEQ/1,000 ML INFUS.BAG IV SCH (15:00)
--- NOTE | 2019-05-19 15:07 | PN ---
Progress Note, Physician History of Present Illness: Pt with gallstone pancreatitis, most of pancreatic inflammation in tail region, though also some stranding at head. GI is also following. She is seen and examined sitting up in chair, with family present, who assisted with Egyptian at bedside. She has only a little pain. No vomiting, tolerating clears but not drinking much. Labs are trending down, wbc is down to 14 today. She is getting IV fluids and antibiotics (per ID), K being repleted. Using IS with family. - Current Medication List Current Medications: Active Medications Metronidazole (Flagyl 500mg Premixed Ivpb -) 500 mg in 100 mls @ 100 mls/hr IVPB Q8H-IV JOHN Last Admin: 05/19/19 09:33 Dose: 100 mls/hr Aztreonam 2 gm/ Dextrose 100 mls @ 100 mls/hr IVPB Q8H-IV JOHN; Protocol Last Admin: 05/19/19 09:30 Dose: 100 mls/hr Vancomycin HCl (Vancomycin (Pre-Docked)) 1,000 mg in 250 mls @ 166.667 mls/hr IVPB Q24H JOHN; Protocol Last Admin: 05/19/19 02:00 Dose: 166.667 mls/hr Potassium Chloride/Dextrose/Sod Cl (D5-1/2ns+20 Meq Kcl -) 20 meq in 1,000 mls @ 100 mls/hr IV ASDIR JOHN Ondansetron HCl (Zofran Injection) 4 mg IVPUSH Q4H PRN PRN Reason: NAUSEA AND/OR VOMITING Last Admin: 05/15/19 18:49 Dose: 4 mg Pantoprazole Sodium (Protonix Iv) 40 mg IVPUSH DAILY JOHN Last Admin: 05/19/19 09:33 Dose: 40 mg - Objective Vital Signs: Vital Signs Temperature 99.4 F 05/19/19 13:40 Pulse Rate 93 H 05/19/19 13:40 Respiratory Rate 18 05/19/19 13:40 Blood Pressure 149/82 05/19/19 13:40 O2 Sat by Pulse Oximetry (%) 95 05/19/19 09:00 Constitutional: Yes: Well Nourished, No Distress, Calm Eyes: Yes: Conjunctiva Clear, EOM Intact. No: Sclera Icterus HENT: Yes: Atraumatic, Normocephalic Gastrointestinal: Yes: Soft, Tenderness (RUQ mild), Tenderness, Epigastrium ( mild). No: Tenderness, Rebound Extremities: No: Cool, Cyanosis Integumentary: No: Jaundice, Rash Neurological: Yes: Alert, Oriented Labs: CBC, BMP 05/19/19 06:15 05/19/19 06:15 CMP Sodium 139 mmol/L (136-145) 05/19/19 06:15 Potassium 3.2 mmol/L (3.5-5.1) L 05/19/19 06:15 Chloride 109 mmol/L (98-107) H 05/19/19 06:15 Carbon Dioxide 23 mmol/L (21-32) 05/19/19 06:15 Anion Gap 7 MMOL/L (8-16) L 05/19/19 06:15 BUN 10.6 mg/dL (7-18) 05/19/19 06:15 Creatinine 0.6 mg/dL (0.55-1.3) 05/19/19 06:15 Est GFR (CKD-EPI)AfAm 99.77 05/19/19 06:15 Est GFR (CKD-EPI)NonAf 86.09 05/19/19 06:15 Random Glucose 129 mg/dL (74-106) H 05/19/19 06:15 Calcium 7.9 mg/dL (8.5-10.1) L 05/19/19 06:15 Total Bilirubin 0.9 mg/dL (0.2-1) 05/19/19 06:15 AST 29 U/L (15-37) 05/19/19 06:15 ALT 64 U/L (13-61) H 05/19/19 06:15 Alkaline Phosphatase 82 U/L (45-117) 05/19/19 06:15 Total Protein 4.6 g/dl (6.4-8.2) L 05/19/19 06:15 Albumin 2.2 g/dl (3.4-5.0) L 05/19/19 06:15 LFTs essentially normal wbc still coming down K repleting Problem List - Problems (1) Acute gallstone pancreatitis Assessment/Plan: pain and tenderness minimal keep on clear liquids for now - watch for increasing pain or tenderness, or vomiting NPO after midnight except meds with sips H2O will decrease IV fluids some to encourage po ok to continue home bp med and gabapentin pain meds prn - nonnarcotics first line (tylenol) GI/DVT prophylaxis antibiotics per ID labs trending down, including wbc today replete lytes - changed IV fluids to include KCl trend labs encourage sitting up/OOB, ambulation as able incentive spirometer planning for lap possible open mayo in am Discussed with patient using Egyptian phone section plotter operator #[id number] risks, benefits and alternatives of laparoscopic possible open cholecystectomy, including but not limited to bleeding, infection, injury to adjacent structures, bile leak or ductal injury, intraabdominal abscess, incisional hernia, need for further procedures, ; alternatives include delayed or no surgery - risks of this include recurrence of pancreatitis, cholecystitis, cholangitis, sepsis, . Patient desires to proceed with operation - will take to OR in am for above, presuming no significant change in clinical status. Informed consent signed for same. Code(s): K85.10 - BILIARY ACUTE PANCREATITIS WITHOUT NECROSIS OR INFECTION (2) Epigastric pain Assessment/Plan: improved Code(s): R10.13 - EPIGASTRIC PAIN (3) Hypertension Code(s): I10 - ESSENTIAL (PRIMARY) HYPERTENSION Qualifiers: Hypertension type: essential hypertension Qualified Code(s): I10 - Essential (primary) hypertension
[2019-05-19] MEDS ORDERED: PT OWN MED DRAWER 7, Y5N ONE (23:23)
[2019-05-20] MEDS: AZTREONAM 2 GM in DEXTROSE 5%-WATER 100 ML IVPB SCH ×2 (01:00→18:29)
[2019-05-20] MEDS: VANCOMYCIN 1 GRAM (PRE-DOCKED) 1,000 MG/250 ML BAG IVPB SCH (01:00)
[2019-05-20 01:12] LABS: BASO % 0.5 % (0-2.0); EOS % 1.1 % (0-4.5); HEMATOCRIT 33.4 % (32.4-45.2); HEMOGLOBIN 10.9 GM/dL (10.7-15.3); LYMPH % 7.8 % (8-40); MCH 28.2 pg (25.7-33.7); MCHC 32.5 g/dl (32.0-36.0); MEAN CELL VOLUME 86.7 fl (80-96); MEAN PLT VOLUME 9.4 fl (7.5-11.1); MONO % 15.4 % (3.8-10.2); NEUT % 75.2 % (42.8-82.8); PLATELET COUNT 208 K/MM3 (134-434); RBC 3.86 M/mm3 (3.60-5.2); RDW 14.9 % (11.6-15.6); WHITE BLOOD COUNT 14.4 K/mm3 (4.0-10.0)
[2019-05-20 01:51] LABS: ALBUMIN 2.2 g/dl (3.4-5.0); BILIRUBIN,TOTAL 0.8 mg/dL (0.2-1); BLOOD UREA NITROGEN 8.7 mg/dL (7-18); CALCIUM 7.6 mg/dL (8.5-10.1); CREATININE 0.7 mg/dL (0.55-1.3); MAGNESIUM 1.8 mg/dL (1.8-2.4); POTASSIUM 3.5 mmol/L (3.5-5.1); TOT PROT 4.8 g/dl (6.4-8.2)
[2019-05-20] MEDS ORDERED: SODIUM PHOSPHATE IVPB ONE (04:30)
[2019-05-20] MEDS ORDERED: SODIUM CHLORIDE IVPB ONE (04:30)
[2019-05-20 06:11] LABS: ANISOCYTOSIS 1+; MACROCYTOSIS 0; PLATELET ESTIMATE NORMAL
[2019-05-20] MEDS ORDERED: PROPOFOL 20 ML ONE ×3 (08:02→08:03)
[2019-05-20] MEDS ORDERED: EPHEDRINE SULFATE/0.9% NACL/PF 50 MG/10 ML SYRINGE NR ONE (08:02)
[2019-05-20] MEDS ORDERED: MIDAZOLAM HCL 2 MG/2 ML SINGLE DOSE VIAL ONE (08:03)
[2019-05-20] MEDS ORDERED: SUCCINYLCHOLINE CHLORIDE 200 MG/10 ML SYRINGE ONE (08:03)
[2019-05-20] MEDS ORDERED: ROCURONIUM BROMIDE 50 MG/5 ML SYRINGE ONE (08:07)
[2019-05-20] MEDS ORDERED: BUPIVACAINE HCL/PF 0.5% (5 MG/ML) 30 ML VIAL IJ ONE ×2 (08:45→09:50)
[2019-05-20] MEDS ORDERED: NEOSTIGMINE METHYLSULFATE 0.5 MG/ML - 10 ML MDV ONE (08:50)
[2019-05-20] MEDS ORDERED: LIDOCAINE HCL/PF 2% SDV 5ML VIAL ONE (09:45)
[2019-05-20] MEDS ORDERED: METOPROLOL TARTRATE 5 MG/5 ML VIAL ONE (09:45)
[2019-05-20] MEDS ORDERED: DEXAMETHASONE SOD PHOSPHATE 4 MG/1 ML VIAL ONE (09:45)
[2019-05-20] MEDS ORDERED: BENZOIN TINCTURE SWABSTICK TP ONE (09:46)
--- NOTE | 2019-05-20 10:14 | OP ---
Operative Note - Note: Operative Date: 05/20/19 Pre-Operative Diagnosis: gallstone pancreatitis Operation: laparoscopic cholecystectomy Findings: cystic artery and duct identified/clipped/cut; gallbladder peeled off liver bed ; hemostasis achieved Post-Operative Diagnosis: Same as Pre-op Surgeon: Andrew Harper Moisture Tester: Dipak Garcia Anesthesiologist/BEAM DEPARTMENT SUPERVISOR: Lori Ross Anesthesia: General, Local (0.5% marcaine 12ml) Specimens Removed: gallbladder to pathology Estimated Blood Loss (mls): 15 Fluid Volume Replaced (mls): 500 (crystalloid) Operative Report Dictated: Yes
[2019-05-20] MEDS ORDERED: ACETAMINOPHEN 1000 MG/100 ML VIAL (NON FORMULARY) IVPB ONE ×2 (10:16→10:46)
[2019-05-20] MEDS ORDERED: ACETAMINOPHEN INJECTION 100 ML IVPB ONE (10:19)
[2019-05-20] MEDS ORDERED: LIDOCAINE HCL 2% JELLY (5 ML/TUBE) ONE (10:29)
[2019-05-20] MEDS ORDERED: GABAPENTIN 100 MG CAPSULE (FP) PO SCH (10:30)
--- NOTE | 2019-05-20 10:37 | PN ---
Progress Note (short form) - Note Progress Note: pt examined in PACU S/p lap josselin Drowsy no distress Vital Signs - 24 hr 05/19/19 05/19/19 05/19/19 13:40 20:06 21:00 Temperature 99.4 F 99.6 F Pulse Rate 93 H 95 H Respiratory 18 19 19 Rate Blood Pressure 149/82 159/72 O2 Sat by Pulse 95 Oximetry (%) 05/19/19 05/20/19 05/20/19 22:00 01:00 05:00 Temperature 99.8 F H 98.2 F 98.8 F Pulse Rate 97 H 91 H 90 Respiratory 19 Rate Blood Pressure 153/80 142/81 140/75 O2 Sat by Pulse Oximetry (%) 05/20/19 05/20/19 05/20/19 08:01 08:17 10:07 Temperature 98 F 98.5 F Pulse Rate 87 108 H Respiratory 16 Rate Blood Pressure 155/70 135/66 O2 Sat by Pulse 98 95 Oximetry (%) 05/20/19 05/20/19 05/20/19 10:20 10:35 10:50 Temperature Pulse Rate 105 H 99 H 85 Respiratory 18 18 17 Rate Blood Pressure 139/67 136/58 L 140/64 O2 Sat by Pulse 93 L 92 L 93 L Oximetry (%) 05/20/19 05/20/19 05/20/19 11:05 11:20 11:35 Temperature Pulse Rate 82 77 75 Respiratory 18 18 18 Rate Blood Pressure 141/72 142/69 144/67 O2 Sat by Pulse 92 L 97 96 Oximetry (%) 05/20/19 05/20/19 05/20/19 11:50 12:05 12:20 Temperature Pulse Rate 71 78 73 Respiratory 18 18 18 Rate Blood Pressure 142/63 145/78 143/68 O2 Sat by Pulse 97 96 97 Oximetry (%) Current Medications Generic Name Dose Route Start Last Admin Trade Name Freq PRN Reason Stop Dose Admin Acetaminophen 650 mg 05/20/19 15:00 Tylenol - PO Q6H JOHN Amlodipine Besylate 5 mg 05/21/19 10:00 Norvasc - PO DAILY JOHN Gabapentin 100 mg 05/20/19 18:30 Neurontin - PO Q8H JOHN Aztreonam 2 gm/ Dextrose 100 mls @ 100 mls/hr 05/20/19 18:00 IVPB Q8H-IV JOHN Protocol Potassium Chloride/Dextrose/Sod Cl 20 meq in 1,000 mls @ 100 mls/hr 05/20/19 10:46 D5-1/2ns+20 Meq Kcl - IV ASDIR JOHN Metronidazole 500 mg in 100 mls @ 100 mls/hr 05/20/19 18:00 Flagyl 500mg Premixed Ivpb - IVPB Q8H-IV JOHN Vancomycin HCl 1,000 mg in 250 mls @ 166.667 mls/hr 05/21/19 01:00 Vancomycin (Pre-Docked) IVPB Q24H JOHN Protocol Lactated Ringer's 1,000 mls @ 75 mls/hr 05/20/19 11:00 Lactated Ringers Solution IV ASDIR [facility] Ibuprofen 600 mg 05/20/19 18:00 Motrin - PO Q6H JOHN Lisinopril 40 mg 05/21/19 10:00 Prinivil PO DAILY [facility] Ondansetron HCl 4 mg 05/20/19 10:46 Zofran Injection IVPUSH Q4H PRN NAUSEA AND/OR VOMITING Pantoprazole Sodium 40 mg 05/21/19 10:00 Protonix Iv IVPUSH DAILY [facility] Laboratory Results - last 24 hr 05/20/19 05/20/19 05/20/19 00:30 00:30 00:30 WBC 14.4 H RBC 3.86 Hgb 10.9 Hct 33.4 MCV 86.7 MCH 28.2 MCHC 32.5 RDW 14.9 Plt Count 208 MPV 9.4 Absolute Neuts (auto) 10.8 H Neutrophils % 75.2 Neutrophils % (Manual) 69.3 Band Neutrophils % 5.9 Lymphocytes % 7.8 L Lymphocytes % (Manual) 7.9 L D Monocytes % 15.4 H Monocytes % (Manual) 10 D Eosinophils % 1.1 D Eosinophils % (Manual) 0.0 Basophils % 0.5 Basophils % (Manual) 1.0 D Myelocytes % (Man) 5 H D Promyelocytes % (Man) 0 Blast Cells % (Manual) 0 Nucleated RBC % 0 Metamyelocytes 1 Hypochromia 1+ Platelet Estimate Normal Polychromasia 0 Poikilocytosis 0 Anisocytosis 1+ Microcytosis 1+ Macrocytosis 0 Sodium 140 Potassium 3.5 Chloride 111 H Carbon Dioxide 22 Anion Gap 7 L BUN 8.7 Creatinine 0.7 Est GFR (CKD-EPI)AfAm 94.84 Est GFR (CKD-EPI)NonAf 81.83 Random Glucose 162 H Calcium 7.6 L Phosphorus 1.0 L* Magnesium 1.8 Total Bilirubin 0.8 AST 34 ALT 53 Alkaline Phosphatase 82 Total Protein 4.8 L Albumin 2.2 L Vancomycin Pre-Dose 4.2 L S1 S2 RRR Lungs clear Abd- soft, slight distension, dressings noted no edema PLAN NPO IV fluids phosphate replaced iv antibiotics Problem List - Problems (1) Acute gallstone pancreatitis Code(s): K85.10 - BILIARY ACUTE PANCREATITIS WITHOUT NECROSIS OR INFECTION (2) Cholecystitis Code(s): K81.9 - CHOLECYSTITIS, UNSPECIFIED (3) Epigastric pain Code(s): R10.13 - EPIGASTRIC PAIN (4) Hypertension Code(s): I10 - ESSENTIAL (PRIMARY) HYPERTENSION Qualifiers: Hypertension type: essential hypertension Qualified Code(s): I10 - Essential (primary) hypertension (5) Nausea and vomiting Code(s): R11.2 - NAUSEA WITH VOMITING, UNSPECIFIED Qualifiers: Vomiting type: unspecified Vomiting Intractability: non-intractable Qualified Code(s): R11.2 - Nausea with vomiting, unspecified
[2019-05-20] MEDS ORDERED: ONDANSETRON 4 MG/2 ML VIAL IVPUSH PRN (10:46)
[2019-05-20] MEDS ORDERED: D5-1/2NS+20 MEQ KCL - 20 MEQ/1,000 ML INFUS.BAG IV SCH (10:46)
[2019-05-20] MEDS ORDERED: LACTATED RINGERS SOLUTION 1,000 ML IV SCH (11:00)
[2019-05-20] MEDS ORDERED: POTASSIUM PHOSPHATE 15 MM in SODIUM CHLORIDE 250 ML IVPB ONE ×2 (11:00→13:30)
[2019-05-20] MEDS ORDERED: ACETAMINOPHEN 325 MG TABLET (FP) PO SCH (15:00)
[2019-05-20] MEDS: ACETAMINOPHEN 325 MG TABLET (FP) PO SCH ×2 (16:00→21:31)
--- NOTE | 2019-05-20 16:04 | PN ---
Progress Note (short form) - Note Progress Note: s/p surgery this am resting comfortably no complaints Vital Signs Period Temp Pulse Resp BP Sys/Ying Pulse Ox Last 24 Hr 98 F-99.8 F 69-108 16-19 134-159/58-81 92-98 cor-rrr lungs clear abd soft ext no edema CBC, BMP 05/20/19 00:30 05/20/19 00:30 Microbiology 05/16/19 00:00 Blood - Peripheral Venous Blood Culture - Preliminary NO GROWTH OBTAINED AFTER 96 HOURS, INCUBATION TO CONTINUE FOR 1 DAYS. 05/16/19 00:00 Blood - Peripheral Venous Blood Culture - Preliminary NO GROWTH OBTAINED AFTER 96 HOURS, INCUBATION TO CONTINUE FOR 1 DAYS. 05/16/19 12:35 Urine - Urine Clean Catch Urine Culture - Final NO GROWTH OBTAINED a/p s/p lap choly today gallstone pancreatitis- continue vancomycin/azactam and flagyl pen allergy encourage incentive spirometry Problem List - Problems (1) Acute gallstone pancreatitis Code(s): K85.10 - BILIARY ACUTE PANCREATITIS WITHOUT NECROSIS OR INFECTION (2) Cholecystitis Code(s): K81.9 - CHOLECYSTITIS, UNSPECIFIED (3) Penicillin allergy Code(s): Z88.0 - ALLERGY STATUS TO PENICILLIN
[2019-05-20] MEDS: IBUPROFEN 600 MG TABLET (FP) PO SCH (17:32)
[2019-05-20] MEDS: GABAPENTIN 100 MG CAPSULE (FP) PO SCH (17:32)
[2019-05-20] MEDS ORDERED: PT OWN MED DRAWER 7, Y5N ONE (17:57)
[2019-05-20] MEDS ORDERED: IBUPROFEN 600 MG TABLET (FP) PO SCH (18:00)
--- NOTE | 2019-05-20 18:31 | PN.GI ---
GI Progress Note Subjective: Sitting in bed, awake, states feeling better S/P Lap Marlene this morning - Objective Vital Signs: Vital Signs Temperature 98.1 F 05/20/19 13:30 Pulse Rate 69 05/20/19 13:30 Respiratory Rate 18 05/20/19 13:30 Blood Pressure 140/76 05/20/19 13:30 O2 Sat by Pulse Oximetry (%) 98 05/20/19 13:30 Constitutional: Calm Eyes: No: Sclera Icterus Cardiovascular: Yes: Regular Rate and Rhythm Respiratory: Yes: CTA Bilaterally Gastrointestinal Inspection: Yes: Other (dressed trochar sites). No: Distention ...Auscultate: Yes: Normoactive Bowel Sounds ...Palpate: Yes: Soft. No: Tenderness Edema: No (No LE edema) Neurological: Yes: Alert Labs: CBC, BMP 05/20/19 00:30 05/20/19 00:30 INR, PTT INR 1.54 (0.83-1.09) H 05/17/19 08:40 Problem List - Problems (1) Acute gallstone pancreatitis Assessment/Plan: Clinically much improved LFTs have normalized: continue to monitor Post op care per surgery Electrolyte repletion per primary team Code(s): K85.10 - BILIARY ACUTE PANCREATITIS WITHOUT NECROSIS OR INFECTION
[2019-05-21] MEDS: IBUPROFEN 600 MG TABLET (FP) PO SCH ×4 (00:24→17:57)
[2019-05-21] MEDS ORDERED: VANCOMYCIN 1 GRAM (PRE-DOCKED) 1,000 MG/250 ML BAG IVPB SCH (01:00)
[2019-05-21] MEDS: AZTREONAM 2 GM in DEXTROSE 5%-WATER 100 ML IVPB SCH ×3 (01:25→18:34)
[2019-05-21] MEDS ORDERED: PT OWN MED DRAWER 7, Y5N ONE ×3 (01:25→18:11)
[2019-05-21] MEDS: GABAPENTIN 100 MG CAPSULE (FP) PO SCH ×3 (02:33→17:57)
[2019-05-21] MEDS: ACETAMINOPHEN 325 MG TABLET (FP) PO SCH ×4 (02:33→21:26)
[2019-05-21 07:54] LABS: BASO % 0.1 % (0-2.0); EOS % 0.1 % (0-4.5); HEMATOCRIT 29.6 % (32.4-45.2); HEMOGLOBIN 9.7 GM/dL (10.7-15.3); MCH 28.2 pg (25.7-33.7); MCHC 32.8 g/dl (32.0-36.0); MEAN CELL VOLUME 85.9 fl (80-96); MEAN PLT VOLUME 9.1 fl (7.5-11.1); MONO % 11.7 % (3.8-10.2); NEUT % 80.1 % (42.8-82.8); PLATELET COUNT 260 K/MM3 (134-434); RBC 3.45 M/mm3 (3.60-5.2); RDW 14.9 % (11.6-15.6); WHITE BLOOD COUNT 15.6 K/mm3 (4.0-10.0)
[2019-05-21 08:10] LABS: ALBUMIN 2.1 g/dl (3.4-5.0); BILIRUBIN,DIRECT 0.3 mg/dL (0.0-0.2); BILIRUBIN,TOTAL 0.5 mg/dL (0.2-1); TOT PROT 4.8 g/dl (6.4-8.2)
[2019-05-21 08:17] LABS: ALBUMIN 2.1 g/dl (3.4-5.0); BILIRUBIN,TOTAL 0.6 mg/dL (0.2-1); BLOOD UREA NITROGEN 15.4 mg/dL (7-18); CALCIUM 7.8 mg/dL (8.5-10.1); CREATININE 0.9 mg/dL (0.55-1.3); MAGNESIUM 1.9 mg/dL (1.8-2.4); PHOSPHOROUS 2.3 mg/dL (2.5-4.9); POTASSIUM 3.9 mmol/L (3.5-5.1); TOT PROT 4.8 g/dl (6.4-8.2)
[2019-05-21] MEDS: LISINOPRIL 20 MG TABLET (FP) PO SCH (09:06)
[2019-05-21] MEDS: amLODIPine BESYLATE 5 MG TABLET (FP) PO SCH (09:07)
[2019-05-21] MEDS ORDERED: PANTOPRAZOLE SODIUM 40 MG VIAL IVPUSH SCH (10:00)
[2019-05-21] MEDS ORDERED: PATIENT'S OWN MEDICATION (NON-FORMULARY) (Amlodipine Besylate/Benazepril [Lotrel 5-40 Mg C PO SCH (10:00)
[2019-05-21] MEDS ORDERED: LISINOPRIL 20 MG TABLET (FP) PO SCH (10:00)
[2019-05-21] MEDS ORDERED: amLODIPine BESYLATE 5 MG TABLET (FP) PO SCH (10:00)
--- NOTE | 2019-05-21 11:14 | PN ---
Progress Note (short form) - Note Progress Note: pt examined POD #1 no pain Eat breakfast fine, no bm no nausea Family at bedside Vital Signs - 24 hr 05/20/19 05/20/19 05/20/19 11:20 11:35 11:50 Temperature Pulse Rate 77 75 71 Respiratory 18 18 18 Rate Blood Pressure 142/69 144/67 142/63 O2 Sat by Pulse 97 96 97 Oximetry (%) 05/20/19 05/20/19 05/20/19 12:05 12:20 12:35 Temperature 98.3 F Pulse Rate 78 73 76 Respiratory 18 18 18 Rate Blood Pressure 145/78 143/68 134/59 L O2 Sat by Pulse 96 97 96 Oximetry (%) 05/20/19 05/20/19 05/20/19 13:16 13:30 21:00 Temperature 98.1 F 98.1 F Pulse Rate 69 69 Respiratory 18 18 20 Rate Blood Pressure 140/76 140/76 O2 Sat by Pulse 98 98 Oximetry (%) 05/20/19 05/21/19 05/21/19 21:36 02:00 05:49 Temperature 98.9 F 98.0 F 98.0 F Pulse Rate 76 75 63 Respiratory 20 20 18 Rate Blood Pressure 143/93 130/69 134/69 O2 Sat by Pulse Oximetry (%) Current Medications Generic Name Dose Route Start Last Admin Trade Name Chauq PRN Reason Stop Dose Admin Acetaminophen 650 mg 05/20/19 15:00 05/21/19 09:07 Tylenol - PO 650 mg Q6H JOHN Administration Amlodipine Besylate 5 mg 05/21/19 10:00 05/21/19 09:07 Norvasc - PO 5 mg DAILY JOHN Administration Gabapentin 100 mg 05/20/19 18:30 05/21/19 09:07 Neurontin - PO 100 mg Q8H JOHN Administration Aztreonam 2 gm/ Dextrose 100 mls @ 100 mls/hr 05/20/19 18:00 05/21/19 10:39 IVPB 100 mls/hr Q8H-IV JOHN Administration Protocol Potassium Chloride/Dextrose/Sod Cl 20 meq in 1,000 mls @ 100 mls/hr 05/20/19 10:46 D5-1/2ns+20 Meq Kcl - IV ASDIR JOHN Metronidazole 500 mg in 100 mls @ 100 mls/hr 05/20/19 18:00 05/21/19 09:08 Flagyl 500mg Premixed Ivpb - IVPB 100 mls/hr Q8H-IV JOHN Administration Lactated Ringer's 1,000 mls @ 75 mls/hr 05/20/19 11:00 Lactated Ringers Solution IV ASDIR JOHN Vancomycin HCl 750 mg/ 150 mls @ 150 mls/hr 05/21/19 13:00 Dextrose IVPB Q12H JOHN Protocol Ibuprofen 600 mg 05/20/19 18:00 05/21/19 06:50 Motrin - PO 600 mg Q6H JOHN Administration Lisinopril 40 mg 05/21/19 10:00 05/21/19 09:06 Prinivil PO 40 mg DAILY JOHN Administration Ondansetron HCl 4 mg 05/20/19 10:46 Zofran Injection IVPUSH Q4H PRN NAUSEA AND/OR VOMITING Pantoprazole Sodium 40 mg 05/21/19 10:00 05/21/19 09:08 Protonix Iv IVPUSH 40 mg DAILY JOHN Administration Laboratory Results - last 24 hr 05/21/19 05/21/19 05/21/19 07:15 07:15 07:15 WBC 15.6 H RBC 3.45 L Hgb 9.7 L Hct 29.6 L MCV 85.9 MCH 28.2 MCHC 32.8 RDW 14.9 Plt Count 260 D MPV 9.1 Absolute Neuts (auto) 12.5 H Neutrophils % 80.1 Lymphocytes % 8.0 Monocytes % 11.7 H Eosinophils % 0.1 D Basophils % 0.1 Nucleated RBC % 0 Sodium 144 Potassium 3.9 Chloride 110 H Carbon Dioxide 23 Anion Gap 11 BUN 15.4 Creatinine 0.9 Est GFR (CKD-EPI)AfAm 69.99 Est GFR (CKD-EPI)NonAf 60.39 Random Glucose 160 H Calcium 7.8 L Phosphorus 2.3 L Magnesium 1.9 Total Bilirubin 0.6 0.5 Direct Bilirubin 0.3 H AST 77 H 74 H ALT 72 H 69 H Alkaline Phosphatase 76 76 Total Protein 4.8 L 4.8 L Albumin 2.1 L 2.1 L S1 S2 RRR Lungs clear Abd- soft, slight distension, dressings noted no edema PLAN tolerating diet replace hodan pettit spoke with ID about elevated WBC-->pt is on antibiotics cultures negative ?inflammatory process check cbc tomorrow Microbiology 05/16/19 00:00 Blood - Peripheral Venous Blood Culture - Final NO GROWTH AFTER 5 DAYS INCUBATION 05/16/19 00:00 Blood - Peripheral Venous Blood Culture - Final NO GROWTH AFTER 5 DAYS INCUBATION 05/16/19 12:35 Urine - Urine Clean Catch Urine Culture - Final NO GROWTH OBTAINED Problem List - Problems (1) Acute gallstone pancreatitis Code(s): K85.10 - BILIARY ACUTE PANCREATITIS WITHOUT NECROSIS OR INFECTION (2) Cholecystitis Code(s): K81.9 - CHOLECYSTITIS, UNSPECIFIED (3) Epigastric pain Code(s): R10.13 - EPIGASTRIC PAIN (4) Hypertension Code(s): I10 - ESSENTIAL (PRIMARY) HYPERTENSION Qualifiers: Hypertension type: essential hypertension Qualified Code(s): I10 - Essential (primary) hypertension (5) Nausea and vomiting Code(s): R11.2 - NAUSEA WITH VOMITING, UNSPECIFIED Qualifiers: Vomiting type: unspecified Vomiting Intractability: non-intractable Qualified Code(s): R11.2 - Nausea with vomiting, unspecified
--- NOTE | 2019-05-21 11:16 | PN ---
Progress Note (short form) - Note Progress Note: s/p surgery yesterday am resting comfortably no complaints no bm yest, tolerating diet no abdominal pain Vital Signs Period Temp Pulse Resp BP Sys/Ying Pulse Ox Last 24 Hr 98.0 F-98.9 F 63-78 18-20 130-145/59-93 96-98 cor-rrr lungs decreased bs at bases abd soft,nt ext no edema CBC, BMP 05/21/19 07:15 05/21/19 07:15 Microbiology 05/16/19 00:00 Blood - Peripheral Venous Blood Culture - Final NO GROWTH AFTER 5 DAYS INCUBATION 05/16/19 00:00 Blood - Peripheral Venous Blood Culture - Final NO GROWTH AFTER 5 DAYS INCUBATION 05/16/19 12:35 Urine - Urine Clean Catch Urine Culture - Final NO GROWTH OBTAINED a/p persistent leukocytosis- ?secondary to pancreatitis- ?re-image- would d/w gi and surgery s/p lap choly pod#2 penicillin allergy- prolonged qtc encourage incentive spirometry Problem List - Problems (1) Acute gallstone pancreatitis Code(s): K85.10 - BILIARY ACUTE PANCREATITIS WITHOUT NECROSIS OR INFECTION (2) Cholecystitis Code(s): K81.9 - CHOLECYSTITIS, UNSPECIFIED (3) Penicillin allergy Code(s): Z88.0 - ALLERGY STATUS TO PENICILLIN
[2019-05-21] MEDS ORDERED: POTASSIUM PHOSPHATE 15 MM in SODIUM CHLORIDE 250 ML IVPB ONE (12:15)
[2019-05-21] MEDS: VANCOMYCIN 750 MG in DEXTROSE 5%-WATER - 250 ML IVPB SCH (14:33)
--- NOTE | 2019-05-21 16:40 | PN ---
Progress Note, Physician History of Present Illness: Pt with gallstone pancreatitis, s/p lap mayo yesterday. She is seen and examined in bed, with family present, who assisted with [place]ots[place] at bedside. She reports no pain. No vomiting, tolerating low-fat diet and eating more. She has also ambulated at least twice, and is voiding and passing a little gas, but no BM yet. Wbc is 15.6 today, slightly up. She is getting IV antibiotics per ID, KPhos repleted. Using IS with family. Feeling much better overall. - Current Medication List Current Medications: Active Medications Acetaminophen (Tylenol -) 650 mg PO Q6H [facility] Last Admin: 05/21/19 14:33 Dose: 650 mg Amlodipine Besylate (Norvasc -) 5 mg PO DAILY JOHN Last Admin: 05/21/19 09:07 Dose: 5 mg Cyanocobalamin (Vitamin B12 -) 100 mcg PO DAILY [facility] Enoxaparin Sodium (Lovenox -) 40 mg SQ DAILY JOHN Gabapentin (Neurontin -) 100 mg PO Q8H JOHN Last Admin: 05/21/19 09:07 Dose: 100 mg Aztreonam 2 gm/ Dextrose 100 mls @ 100 mls/hr IVPB Q8H-IV JOHN; Protocol Last Admin: 05/21/19 10:39 Dose: 100 mls/hr Metronidazole (Flagyl 500mg Premixed Ivpb -) 500 mg in 100 mls @ 100 mls/hr IVPB Q8H-IV JOHN Last Admin: 05/21/19 09:08 Dose: 100 mls/hr Vancomycin HCl 750 mg/ (Dextrose) 250 mls @ 250 mls/hr IVPB BID@0100,1300 JOHN; Protocol Last Admin: 05/21/19 14:33 Dose: 250 mls/hr Ibuprofen (Motrin -) 600 mg PO Q6H JOHN Last Admin: 05/21/19 12:14 Dose: 600 mg Lisinopril (Prinivil) 40 mg PO DAILY JOHN Last Admin: 05/21/19 09:06 Dose: 40 mg Non-Formulary Medication (Esomeprazole Magnesium [Esomeprazole Magnesium]) 40 mg PO DAILY [facility] Non-Formulary Medication (Multivitamin With Minerals [Icaps Plus]) 1 each PO DAILY [facility] Ondansetron HCl (Zofran Injection) 4 mg IVPUSH Q4H PRN PRN Reason: NAUSEA AND/OR VOMITING - Objective Vital Signs: Vital Signs Temperature 98.7 F 05/21/19 13:27 Pulse Rate 66 05/21/19 13:27 Respiratory Rate 20 05/21/19 13:27 Blood Pressure 124/58 L 05/21/19 13:27 O2 Sat by Pulse Oximetry (%) 98 05/20/19 21:00 Constitutional: Yes: Well Nourished, No Distress, Calm Eyes: Yes: Conjunctiva Clear, EOM Intact. No: Sclera Icterus HENT: Yes: Atraumatic, Normocephalic Gastrointestinal: Yes: Soft. No: Tenderness (no RUQ/epigastric/LUQ tenderness, no incisional tenderness), Tenderness, Epigastrium Extremities: No: Cool, Cyanosis Integumentary: Yes: Incision (x4 dressed). No: Jaundice, Rash Wound/Incision: Yes: Steri Strips (under dressings), Dressing Dry and Intact ( x3 - umbilical site saturated with old, bloody drainage), Dressing Removed ( umbilical site - small blood clot present, steristrips removed and site cleansed with gauze; incision c/d/i, tiny edge of skin with oozing, touched with silver nitrate; steristrips replaced, redressed with gauze and tegaderm) Neurological: Yes: Alert, Oriented Labs: CBC, BMP 05/21/19 07:15 05/21/19 07:15 CMP Sodium 144 mmol/L (136-145) 05/21/19 07:15 Potassium 3.9 mmol/L (3.5-5.1) 05/21/19 07:15 Chloride 110 mmol/L (98-107) H 05/21/19 07:15 Carbon Dioxide 23 mmol/L (21-32) 05/21/19 07:15 Anion Gap 11 MMOL/L (8-16) 05/21/19 07:15 BUN 15.4 mg/dL (7-18) 05/21/19 07:15 Creatinine 0.9 mg/dL (0.55-1.3) 05/21/19 07:15 Est GFR (CKD-EPI)AfAm 69.99 05/21/19 07:15 Est GFR (CKD-EPI)NonAf 60.39 05/21/19 07:15 Random Glucose 160 mg/dL (74-106) H 05/21/19 07:15 Lactic Acid 1.5 mmol/L (0.4-2.0) 05/16/19 02:29 Calcium 7.8 mg/dL (8.5-10.1) L 05/21/19 07:15 Phosphorus 2.3 mg/dL (2.5-4.9) L 05/21/19 07:15 Magnesium 1.9 mg/dL (1.8-2.4) 05/21/19 07:15 Total Bilirubin 0.6 mg/dL (0.2-1) 05/21/19 07:15 Direct Bilirubin 0.3 mg/dL (0.0-0.2) H 05/21/19 07:15 AST 77 U/L (15-37) H 05/21/19 07:15 ALT 72 U/L (13-61) H 05/21/19 07:15 Alkaline Phosphatase 76 U/L (45-117) 05/21/19 07:15 Troponin I < 0.02 ng/ml (0.00-0.05) 05/15/19 12:00 C-Reactive Protein 23.4 MG/DL (0.00-0.3) H 05/17/19 08:40 Total Protein 4.8 g/dl (6.4-8.2) L 05/21/19 07:15 Albumin 2.1 g/dl (3.4-5.0) L 05/21/19 07:15 Lipase 262 U/L (73-393) 05/18/19 06:33 Problem List - Problems (1) Acute gallstone pancreatitis Assessment/Plan: POD1 s/p laparoscopic cholecystectomy no pain or tenderness dressings intact except umbilical site changed - incision ok continue tylenol/ibuprofen today, will make prn tomorrow GI/DVT prophylaxis tolerating diet - resume all home meds, stop IV fluids wbc still elevated continue IV antibiotics per ID discussed with Dr. Fletcher - will likely d/c abx tomorrow and watch one more day leukocytosis just as likely from pancreas as postop bump repleted lytes trend labs encourage sitting up/OOB, ambulation as able continue incentive spirometer spoke with pt and family - all in agreement with plan Code(s): K85.10 - BILIARY ACUTE PANCREATITIS WITHOUT NECROSIS OR INFECTION (2) Epigastric pain Assessment/Plan: resolved Code(s): R10.13 - EPIGASTRIC PAIN (3) Hypertension Code(s): I10 - ESSENTIAL (PRIMARY) HYPERTENSION Qualifiers: Hypertension type: essential hypertension Qualified Code(s): I10 - Essential (primary) hypertension
[2019-05-22] MEDS ORDERED: PT OWN MED DRAWER 7, Y5N ONE ×2 (00:09→10:42)
[2019-05-22] MEDS: IBUPROFEN 600 MG TABLET (FP) PO SCH ×3 (00:19→12:20)
[2019-05-22] MEDS: VANCOMYCIN 750 MG in DEXTROSE 5%-WATER - 250 ML IVPB SCH (00:19)
[2019-05-22] MEDS: AZTREONAM 2 GM in DEXTROSE 5%-WATER 100 ML IVPB SCH ×2 (01:48→10:47)
[2019-05-22] MEDS: GABAPENTIN 100 MG CAPSULE (FP) PO SCH ×3 (01:54→18:21)
[2019-05-22] MEDS: ACETAMINOPHEN 325 MG TABLET (FP) PO SCH ×2 (02:01→09:01)
[2019-05-22 08:14] LABS: ALBUMIN 2.2 g/dl (3.4-5.0); BILIRUBIN,TOTAL 0.6 mg/dL (0.2-1); BLOOD UREA NITROGEN 14.1 mg/dL (7-18); CALCIUM 8.1 mg/dL (8.5-10.1); CREATININE 0.9 mg/dL (0.55-1.3); MAGNESIUM 1.9 mg/dL (1.8-2.4); PHOSPHOROUS 2.4 mg/dL (2.5-4.9); POTASSIUM 3.4 mmol/L (3.5-5.1); TOT PROT 4.9 g/dl (6.4-8.2)
[2019-05-22 08:19] LABS: BASO % 0.5 % (0-2.0); EOS % 3.3 % (0-4.5); HEMATOCRIT 30.5 % (32.4-45.2); LYMPH % 14.3 % (8-40); MCH 28.7 pg (25.7-33.7); MCHC 32.8 g/dl (32.0-36.0); MEAN CELL VOLUME 87.4 fl (80-96); MEAN PLT VOLUME 9.1 fl (7.5-11.1); MONO % 11.5 % (3.8-10.2); NEUT % 70.4 % (42.8-82.8); PLATELET COUNT 341 K/MM3 (134-434); RBC 3.49 M/mm3 (3.60-5.2); RDW 15.5 % (11.6-15.6); WHITE BLOOD COUNT 12.9 K/mm3 (4.0-10.0)
[2019-05-22] MEDS: MULTIVITAMINS THER W-MINERALS COMBO TABLET (FP) PO SCH (09:01)
[2019-05-22] MEDS: CYANOCOBALAMIN (VITAMIN B-12) 100 MCG TABLET PO SCH (09:03)
[2019-05-22] MEDS: LISINOPRIL 20 MG TABLET (FP) PO SCH (09:03)
[2019-05-22] MEDS: PANTOPRAZOLE 40 MG TABLET (FP) PO SCH (09:03)
[2019-05-22] MEDS: amLODIPine BESYLATE 5 MG TABLET (FP) PO SCH (09:03)
[2019-05-22] MEDS: ENOXAPARIN NA (PORCINE) 40 MG/0.4 ML DISP.SYRIN SQ SCH (09:03)
[2019-05-22] MEDS ORDERED: PATIENT'S OWN MEDICATION (NON-FORMULARY) (Multivitamin With Minerals [Icaps Plus] 1 EACH) PO SCH (10:00)
--- NOTE | 2019-05-22 10:49 | PN ---
Progress Note (short form) - Note Progress Note: pt examined POD #2 feels well had bm today no abd pain appetite good tolerating diet Vital Signs - 24 hr 05/21/19 05/21/19 05/21/19 13:27 20:30 20:31 Temperature 98.7 F 97.9 F Pulse Rate 66 71 Respiratory 20 20 Rate Blood Pressure 124/58 L 137/67 O2 Sat by Pulse 95 Oximetry (%) 05/21/19 05/22/19 21:27 06:29 Temperature 97.8 F 97.4 F L Pulse Rate 68 76 Respiratory 20 20 Rate Blood Pressure 130/80 128/71 O2 Sat by Pulse Oximetry (%) Current Medications Generic Name Dose Route Start Last Admin Trade Name Freq PRN Reason Stop Dose Admin Acetaminophen 650 mg 05/20/19 15:00 05/22/19 09:01 Tylenol - PO 650 mg Q6H JOHN Administration Amlodipine Besylate 5 mg 05/21/19 10:00 05/22/19 09:03 Norvasc - PO 5 mg DAILY JOHN Administration Cyanocobalamin 100 mcg 05/22/19 10:00 05/22/19 09:03 Vitamin B12 - PO 100 mcg DAILY JOHN Administration Enoxaparin Sodium 40 mg 05/22/19 10:00 05/22/19 09:03 Lovenox - SQ 40 mg DAILY JOHN Administration Gabapentin 100 mg 05/20/19 18:30 05/22/19 10:46 Neurontin - PO 100 mg Q8H JOHN Administration Aztreonam 2 gm/ Dextrose 100 mls @ 100 mls/hr 05/20/19 18:00 05/22/19 10:47 IVPB 100 mls/hr Q8H-IV JOHN Administration Protocol Metronidazole 500 mg in 100 mls @ 100 mls/hr 05/20/19 18:00 05/22/19 09:04 Flagyl 500mg Premixed Ivpb - IVPB 100 mls/hr Q8H-IV JOHN Administration Vancomycin HCl 750 mg/ 250 mls @ 250 mls/hr 05/21/19 13:00 05/22/19 00:19 Dextrose IVPB 250 mls/hr BID@0100,1300 JOHN Administration Protocol Potassium Phosphate 15 mm/ 255 mls @ 62.5 mls/hr 05/22/19 10:46 Sodium Chloride IVPB 09/05/19 14:50 ONCE ONE Ibuprofen 600 mg 05/20/19 18:00 05/22/19 06:03 Motrin - PO 600 mg Q6H JOHN Administration Lisinopril 40 mg 05/21/19 10:00 05/22/19 09:03 Prinivil PO 40 mg DAILY JOHN Administration Multivitamins/Minerals 1 each 05/22/19 10:00 05/22/19 09:01 Theragran-M PO 1 each DAILY JOHN Administration Ondansetron HCl 4 mg 05/20/19 10:46 Zofran Injection IVPUSH Q4H PRN NAUSEA AND/OR VOMITING Pantoprazole Sodium 40 mg 05/22/19 10:00 05/22/19 09:03 Protonix - PO 40 mg DAILY JOHN Administration Laboratory Results - last 24 hr 05/22/19 05/22/19 06:50 06:50 WBC 12.9 H RBC 3.49 L Hgb 10.0 L Hct 30.5 L MCV 87.4 MCH 28.7 MCHC 32.8 RDW 15.5 Plt Count 341 D MPV 9.1 Absolute Neuts (auto) 9.1 H Neutrophils % 70.4 Lymphocytes % 14.3 D Monocytes % 11.5 H Eosinophils % 3.3 D Basophils % 0.5 D Nucleated RBC % 0 Sodium 149 H Potassium 3.4 L Chloride 116 H Carbon Dioxide 19 L Anion Gap 13 BUN 14.1 Creatinine 0.9 Est GFR (CKD-EPI)AfAm 69.99 Est GFR (CKD-EPI)NonAf 60.39 Random Glucose 100 Calcium 8.1 L Phosphorus 2.4 L Magnesium 1.9 Total Bilirubin 0.6 AST 46 H ALT 61 Alkaline Phosphatase 75 Total Protein 4.9 L Albumin 2.2 L S1 S2 RRR Lungs clear Abd- soft, slight distension, dressings noted, BS+ no edema PLAN tolerating diet replace lytes monitor lytes WBC trending down-- will dc antibiotics per ID-->observe off antibiotics cultures negative if WBC increases, may need to reimage abdomen clinically improving Microbiology 05/16/19 00:00 Blood - Peripheral Venous Blood Culture - Final NO GROWTH AFTER 5 DAYS INCUBATION 05/16/19 00:00 Blood - Peripheral Venous Blood Culture - Final NO GROWTH AFTER 5 DAYS INCUBATION 05/16/19 12:35 Urine - Urine Clean Catch Urine Culture - Final NO GROWTH OBTAINED Problem List - Problems (1) Acute gallstone pancreatitis Code(s): K85.10 - BILIARY ACUTE PANCREATITIS WITHOUT NECROSIS OR INFECTION (2) Cholecystitis Code(s): K81.9 - CHOLECYSTITIS, UNSPECIFIED (3) Gastritis Code(s): K29.70 - GASTRITIS, UNSPECIFIED, WITHOUT BLEEDING (4) Hypertension Code(s): I10 - ESSENTIAL (PRIMARY) HYPERTENSION Qualifiers: Hypertension type: essential hypertension Qualified Code(s): I10 - Essential (primary) hypertension
[2019-05-22] MEDS ORDERED: POTASSIUM PHOSPHATE 15 MM in SODIUM CHLORIDE 250 ML IVPB ONE (11:15)
--- NOTE | 2019-05-22 14:11 | PN ---
Progress Note (short form) - Note Progress Note: oob in chair several episodes of loose nonbloody stools today no abdominal pain or cramps Vital Signs Period Temp Pulse Resp BP Sys/Ying Pulse Ox Last 24 Hr 97.4 F-98.4 F 68-76 18-20 128-137/60-80 95-96 cor-rrr lungs clear abd soft,nt ext no edema CBC, BMP 05/22/19 06:50 05/22/19 06:50 Microbiology 05/16/19 00:00 Blood - Peripheral Venous Blood Culture - Final NO GROWTH AFTER 5 DAYS INCUBATION 05/16/19 00:00 Blood - Peripheral Venous Blood Culture - Final NO GROWTH AFTER 5 DAYS INCUBATION 05/16/19 12:35 Urine - Urine Clean Catch Urine Culture - Final NO GROWTH OBTAINED a/p leukocytosis resolving- d/c antibiotics- d/w PMD s/p lap choly pod#3 penicillin allergy- prolonged qtc encourage incentive spirometry if diarrhea persists check stool cdiff Problem List - Problems (1) Acute gallstone pancreatitis Code(s): K85.10 - BILIARY ACUTE PANCREATITIS WITHOUT NECROSIS OR INFECTION (2) Cholecystitis Code(s): K81.9 - CHOLECYSTITIS, UNSPECIFIED (3) Penicillin allergy Code(s): Z88.0 - ALLERGY STATUS TO PENICILLIN
[2019-05-22] MEDS ORDERED: ACETAMINOPHEN 325 MG TABLET (FP) PO PRN (14:34)
[2019-05-22] MEDS ORDERED: IBUPROFEN 600 MG TABLET (FP) PO PRN (14:35)
--- NOTE | 2019-05-22 14:53 | PN ---
Progress Note, Physician History of Present Illness: Pt with gallstone pancreatitis, s/p lap mayo. She is seen and examined sitting up in chair, just back from bathroom. She is voiding, having diarrhea/loose/liquid stools, but eating a lot of fiber and soft /liquid items. She reports no pain, no vomiting, tolerating low-fat diet. She is ambulating. Wbc is down to 12.9. IV antibiotics are now stopped; KPhos being repleted. Using IS. Family not present at this time. - Current Medication List Current Medications: Active Medications Acetaminophen (Tylenol -) 650 mg PO Q6H PRN PRN Reason: Pain Level 1 - 6 Amlodipine Besylate (Norvasc -) 5 mg PO DAILY [facility] Last Admin: 05/22/19 09:03 Dose: 5 mg Cyanocobalamin (Vitamin B12 -) 100 mcg PO DAILY [facility] Last Admin: 05/22/19 09:03 Dose: 100 mcg Enoxaparin Sodium (Lovenox -) 40 mg SQ DAILY [facility] Last Admin: 05/22/19 09:03 Dose: 40 mg Gabapentin (Neurontin -) 100 mg PO Q8H [facility] Last Admin: 05/22/19 10:46 Dose: 100 mg Potassium Phosphate 15 mm/ (Sodium Chloride) 255 mls @ 42.5 mls/hr IVPB ONCE ONE Stop: 05/22/19 17:14 Last Admin: 05/22/19 12:47 Dose: 42.5 mls/hr Ibuprofen (Motrin -) 600 mg PO Q6H PRN PRN Reason: PAIN LEVEL 7 - 10 Lisinopril (Prinivil) 40 mg PO DAILY [facility] Last Admin: 05/22/19 09:03 Dose: 40 mg Multivitamins/Minerals (Theragran-M) 1 each PO DAILY [facility] Last Admin: 05/22/19 09:01 Dose: 1 each Ondansetron HCl (Zofran Injection) 4 mg IVPUSH Q4H PRN PRN Reason: NAUSEA AND/OR VOMITING Pantoprazole Sodium (Protonix -) 40 mg PO DAILY [facility] Last Admin: 05/22/19 09:03 Dose: 40 mg - Objective Vital Signs: Vital Signs Temperature 98.4 F 05/22/19 10:00 Pulse Rate 74 05/22/19 10:00 Respiratory Rate 18 05/22/19 10:00 Blood Pressure 128/60 05/22/19 10:00 O2 Sat by Pulse Oximetry (%) 96 05/22/19 09:00 Constitutional: Yes: Well Nourished, No Distress, Calm Eyes: Yes: Conjunctiva Clear, EOM Intact. No: Sclera Icterus HENT: Yes: Atraumatic, Normocephalic Gastrointestinal: Yes: Soft. No: Tenderness, Tenderness, Epigastrium Extremities: No: Cool, Cyanosis Integumentary: Yes: Incision (x4 dressed). No: Jaundice, Rash Wound/Incision: Yes: Steri Strips (intact at 4 sites - clean/dry), Dressing Dry and Intact (x4), Dressing Removed (x4) Neurological: Yes: Alert, Oriented Labs: CBC, BMP 05/22/19 06:50 05/22/19 06:50 CMP Sodium 149 mmol/L (136-145) H 05/22/19 06:50 Potassium 3.4 mmol/L (3.5-5.1) L 05/22/19 06:50 Chloride 116 mmol/L (98-107) H 05/22/19 06:50 Carbon Dioxide 19 mmol/L (21-32) L 05/22/19 06:50 Anion Gap 13 MMOL/L (8-16) 05/22/19 06:50 BUN 14.1 mg/dL (7-18) 05/22/19 06:50 Creatinine 0.9 mg/dL (0.55-1.3) 05/22/19 06:50 Est GFR (CKD-EPI)AfAm 69.99 05/22/19 06:50 Est GFR (CKD-EPI)NonAf 60.39 05/22/19 06:50 Random Glucose 100 mg/dL (74-106) 05/22/19 06:50 Lactic Acid 1.5 mmol/L (0.4-2.0) 05/16/19 02:29 Calcium 8.1 mg/dL (8.5-10.1) L 05/22/19 06:50 Phosphorus 2.4 mg/dL (2.5-4.9) L 05/22/19 06:50 Magnesium 1.9 mg/dL (1.8-2.4) 05/22/19 06:50 Total Bilirubin 0.6 mg/dL (0.2-1) 05/22/19 06:50 Direct Bilirubin 0.3 mg/dL (0.0-0.2) H 05/21/19 07:15 AST 46 U/L (15-37) H 05/22/19 06:50 ALT 61 U/L (13-61) 05/22/19 06:50 Alkaline Phosphatase 75 U/L (45-117) 05/22/19 06:50 Troponin I < 0.02 ng/ml (0.00-0.05) 05/15/19 12:00 C-Reactive Protein 23.4 MG/DL (0.00-0.3) H 05/17/19 08:40 Total Protein 4.9 g/dl (6.4-8.2) L 05/22/19 06:50 Albumin 2.2 g/dl (3.4-5.0) L 05/22/19 06:50 Lipase 262 U/L (73-393) 05/18/19 06:33 Problem List - Problems (1) Acute gallstone pancreatitis Assessment/Plan: POD2 s/p laparoscopic cholecystectomy no pain or tenderness dressings intact - removed; incisions with steris c/d/i changed tylenol/ibuprofen to prn GI/DVT prophylaxis tolerating diet - encourage more solid food resumed all home meds wbc back down IV antibiotics stopped per ID discussed with Dr. Chance pettit trend labs encourage OOB/ambulation as able continue incentive spirometer presuming stable tomorrow off abx, should be able to go home then Code(s): K85.10 - BILIARY ACUTE PANCREATITIS WITHOUT NECROSIS OR INFECTION (2) Hypertension Code(s): I10 - ESSENTIAL (PRIMARY) HYPERTENSION Qualifiers: Hypertension type: essential hypertension Qualified Code(s): I10 - Essential (primary) hypertension
--- NOTE | 2019-05-22 17:54 | PN.GI ---
GI Progress Note Subjective: patient has diarrhea 6-7 times today post lap mayo - Objective Vital Signs: Vital Signs Temperature 98.0 F 05/22/19 14:00 Pulse Rate 67 05/22/19 14:00 Respiratory Rate 18 05/22/19 14:00 Blood Pressure 123/60 05/22/19 14:00 O2 Sat by Pulse Oximetry (%) 96 05/22/19 09:00 Constitutional: No Distress Eyes: Yes: Conjunctiva Clear HENT: Yes: Atraumatic Neck: Yes: Supple Cardiovascular: Yes: Regular Rate and Rhythm Respiratory: Yes: CTA Bilaterally ...Palpate: Yes: Soft. No: Firm/Rigid, Guarding, Hepatomegaly, Pulsatile Mass, Splenomegaly, Tenderness, Epigastium Labs: CBC, BMP 05/22/19 06:50 05/22/19 06:50 INR, PTT INR 1.54 (0.83-1.09) H 05/17/19 08:40 Problem List - Problems (1) Diarrhea Assessment/Plan: r/o bile acid diarrhea vs c.diff R> stool for c.diif questran 4 grams in 8 oz of water --will d/c if c diff positive low fiber lactose free diet Code(s): R19.7 - DIARRHEA, UNSPECIFIED
[2019-05-22] MEDS: CHOLESTYRAMINE/SUCROSE 4 GM PACKET PO SCH (20:11)
[2019-05-23] MEDS: GABAPENTIN 100 MG CAPSULE (FP) PO SCH ×3 (02:01→11:04)
[2019-05-23 08:04] LABS: ALBUMIN 2.5 g/dl (3.4-5.0); BILIRUBIN,TOTAL 0.7 mg/dL (0.2-1); BLOOD UREA NITROGEN 10.2 mg/dL (7-18); CALCIUM 8.6 mg/dL (8.5-10.1); CREATININE 0.7 mg/dL (0.55-1.3); POTASSIUM 3.8 mmol/L (3.5-5.1); TOT PROT 5.7 g/dl (6.4-8.2)
[2019-05-23 08:05] LABS: BASO % 0.5 % (0-2.0); EOS % 3.2 % (0-4.5); HEMATOCRIT 35.5 % (32.4-45.2); HEMOGLOBIN 11.5 GM/dL (10.7-15.3); LYMPH % 12.1 % (8-40); MCH 28.4 pg (25.7-33.7); MCHC 32.4 g/dl (32.0-36.0); MEAN CELL VOLUME 87.8 fl (80-96); MONO % 6.7 % (3.8-10.2); NEUT % 77.5 % (42.8-82.8); PLATELET COUNT 434 K/MM3 (134-434); RBC 4.05 M/mm3 (3.60-5.2); RDW 15.2 % (11.6-15.6)
--- NOTE | 2019-05-23 10:06 | DS ---
Physical Examination Vital Signs: Vital Signs Temperature 98.6 F 05/23/19 05:46 Pulse Rate 96 H 05/23/19 05:46 Respiratory Rate 20 05/23/19 05:46 Blood Pressure 148/67 05/23/19 05:46 O2 Sat by Pulse Oximetry (%) 97 05/22/19 21:00 Findings/Remarks: Feels well sitting in chair no complains denies pain wants to go home today denies pain/ diarrhea afebrile Constitutional: Yes: No Distress, Calm Eyes: Yes: Conjunctiva Clear HENT: Yes: WNL Neck: Yes: Supple Cardiovascular: Yes: Regular Rate and Rhythm Respiratory: Yes: CTA Bilaterally Gastrointestinal: Yes: Normal Bowel Sounds, Soft Edema: No Neurological: Yes: Alert Psychiatric: Yes: Alert Labs: CBC, BMP 05/23/19 07:15 05/23/19 07:15 Discharge Summary Reason For Visit: PANCREATITIS DUW TO BILIARY OBSTRUCTION Current Active Problems Acute gallstone pancreatitis (Acute) Cholecystitis (Acute) Colitis (Acute) Diarrhea (Acute) Epigastric pain (Acute) Gastritis (Acute) Hypertension (Acute) Nausea and vomiting (Acute) Pancreatitis due to biliary obstruction (Acute) Penicillin allergy (Acute) Hospital Course: Admitted for [place] Pancreatitis MRCP was done Treated with Abx Eventually got lap Cholecystectomy done. GI/ I/D, Surgery followed Stable off abx will d/c home today with close monitoring f/u in office next week and with specialists as advised Pt/ daughter in agreement Condition: Stable - Instructions Disposition: HOME - Home Medications Comprehensive Discharge Medication List: Ambulatory Orders Amlodipine Besylate/Benazepril [Lotrel 5-40 mg Capsule] 1 each PO DAILY Cyanocobalamin [Vitamin B12 -] 1 tab PO DAILY 06/16/16 Esomeprazole Magnesium 40 mg PO DAILY 06/16/16 Multivitamin with Minerals [Icaps Plus] 1 each PO DAILY 06/16/16 Cholestyramine/Sucrose [Questran Packet -] 4 gm PO DAILY 30 Days #30 packet 03/05 Ibuprofen [Motrin -] 600 mg PO Q6H PRN tablet 05/23/19
[2019-05-23 10:10] LABS: ANISOCYTOSIS 0; MACROCYTOSIS 0; PLATELET ESTIMATE NORMAL
[2019-05-23 10:46] VITALS: BP 133/69; PULSE 87; TEMP 98.3
[2019-05-23] MEDS: amLODIPine BESYLATE 5 MG TABLET (FP) PO SCH (11:03)
[2019-05-23] MEDS: MULTIVITAMINS THER W-MINERALS COMBO TABLET (FP) PO SCH (11:03)
[2019-05-23] MEDS: PANTOPRAZOLE 40 MG TABLET (FP) PO SCH (11:03)
[2019-05-23] MEDS: CYANOCOBALAMIN (VITAMIN B-12) 100 MCG TABLET PO SCH (11:03)
[2019-05-23] MEDS: ENOXAPARIN NA (PORCINE) 40 MG/0.4 ML DISP.SYRIN SQ SCH (11:04)
[2019-05-23] MEDS: LISINOPRIL 20 MG TABLET (FP) PO SCH (11:04)
[2019-05-23] MEDS: CHOLESTYRAMINE/SUCROSE 4 GM PACKET PO SCH (11:04)
--- NOTE | 2019-05-26 13:11 | PATH ---
Surgical Pathology Report Patient Name: YULISA AREVALO Med. Rec. #: [id number] /Age/Gender: 1940 (Age: 78) / F Account: [id number] Location: [address] [place] [address]/[facility] Taken: 05/20/2019 Received: 05/20/2019 Reported: 05/26/2019 Physicians: Natanael Contreras M.D. Specimen(s) Received GALLBLADDER Clinical History Biliary obstruction-pancreatitis (gallstone pancreatitis.) Final Diagnosis GALLBLADDER, CHOLECYSTECTOMY: CHRONIC CHOLECYSTITIS AND CHOLELITHIASIS. Electronically Signed Karen Noriega M.D. Gross Description Received in formalin, labeled "gallbladder," is a 1.5 x 3 x 1.8 cm. gallbladder with a 0.5 cm. in length portion of cystic duct attached. The outer surface is smooth. The lumen contains numerous yellow choleliths ranging from 0.1-1.3 cm in greatest dimension, admixed with viscid green bile. The mucosa is bile-stained and velvety. The wall of the gallbladder measures 0.3 cm. in thickness. Mobile Architect sections are submitted in one cassette. AE/05/21/2019 ebram/05/21/2019
--- NOTE | 2019-06-10 19:01 | OP ---
DATE OF OPERATION: 05/20/2019 PREOPERATIVE DIAGNOSIS: Gallstone pancreatitis. POSTOPERATIVE DIAGNOSIS: Gallstone pancreatitis. PROCEDURE PERFORMED: Laparoscopic cholecystectomy. SURGEON: Andrew Harper MD POT ROOM SUPERVISOR: Dipak Garcia MD ANESTHESIA: General endotracheal and local 12 mL of 0.5% Marcaine. ESTIMATED BLOOD LOSS: 15 mL. FLUIDS: 500 mL of crystalloid. SPECIMEN: Gallbladder to Pathology. FINDINGS: Cystic artery and duct were identified, clipped, and cut. The gallbladder peeled some off of the liver bed, and hemostasis was achieved. DISPOSITION: Stable and extubated to PACU. INDICATIONS FOR PROCEDURE: The patient is an 78-year-old Randy female with a history of hypertension and GERD and no abdominal surgeries except for colonoscopy in the past who initially presented with epigastric and left upper quadrant pain associated with chills, nausea, vomiting, and diarrhea. In the emergency room, she had leukocytosis, elevated LFTs, and lipase of 12,000. Imaging including ultrasound, CAT scan, and MRCP showed evidence of gallstones, a contracted gallbladder with a thickened wall, edema and inflammation of the pancreas primarily in the tail region but also some in the head with associated fluid, and no CBD stones or ductal dilation. She has received IV hydration. Has been covered with antibiotics. Her pain and tenderness have improved over the weekend, and she is now at this point where she has been recovered enough to be stable for cholecystectomy. Risks, benefits, and alternatives of laparoscopic, possible open, cholecystectomy were discussed with the patient using the assistance of a [place] phone conference interpreter number [id number]. These included, but were not limited to, bleeding, infection, injury to adjacent structures, bile leak or ductal injury, intra-abdominal abscess, incisional hernia, need for further procedures, and . Alternatives included delayed or no surgery with risks of recurrence of pancreatitis, cholecystitis, cholangitis, sepsis, or . Patient is agreeable to proceed with an operation, signed informed consent for the same, and is now brought to the OR for this procedure. OPERATIVE TECHNIQUE: The patient was brought to the operating room and laid supine on the operating table. Sequential compression devices were applied to bilateral lower extremities, and appropriate antibiotics continued in the perioperative period. After induction and intubation by anesthesia, the patient's abdomen was prepped and draped in sterile fashion, and a small supraumbilical midline incision was made with a scalpel and carried into subcutaneous tissue with electrocautery. The abdominal wall fascia was identified, scored, and elevated with Olena clamps, and the peritoneum was entered bluntly with the tip of a clamp and a fingertip inserted into the abdominal cavity to ensure entry into the abdominal cavity in the absence of any underlying adhesions. A stay suture of 0 Vicryl was then placed in the fascia in figure of eight fashion for later closure. The Ling trocar introduced directly into the abdominal cavity and secured in place with the balloon. The abdomen was insufflated with carbon dioxide. Patient was placed in reverse Trendelenburg position and the laparoscope inserted to inspect the abdominal cavity. Additional 5-mm ports were placed under direct vision in the subxiphoid and right upper quadrant areas x3. The gallbladder was noted to be not markedly distended but was grasped with graspers at the fundus and elevated over the liver edge and at the infundibulum and retracted laterally to facilitate dissection. [place] dissector was used at the base of the gallbladder to carefully begin identifying the cystic duct and artery. These were separately identified as clearly the only structures entering the gallbladder and onto the gallbladder directly were clipped with 5-mm clips, 2 proximally and 1 distally each, and cut between them. The hook cautery was then used to begin taking the gallbladder off the liver bed. The gallbladder was noted in a number of places actually to simply peel off the liver bed leaving some areas of small oozing blood. Hemostasis was achieved in part with electrocautery using the hook cautery on the surface of the liver bed as needed. Once the gallbladder had been entirely from the liver bed, it was placed in an EndoCatch bag and retrieved out the umbilical port site and passed off the table for a pathologic specimen. Once the Ling trocar and pneumoperitoneum had been re-established, the operative field was inspected for hemostasis, which was noted to be complete after cauterizing a few areas of the liver bed. The area was suctioned clear of fluid as needed, and the patient was returned to neutral position. Ports were removed under direct vision, and the Ling trocar and camera were also removed from the abdominal cavity. The abdomen was exsufflated of carbon dioxide. Stay suture at the umbilicus was tied to close the subcutaneous there and local anesthetic infiltrated into all the port sites. Hemostasis was also achieved in the port sites with electrocautery where needed. Skin was closed with 4-0 Vicryl subcuticular sutures including a running at the umbilicus. Benzoin and Steri-Strips were placed over each incision. Dressings of gauze and Tegaderm were placed over these. Counts were correct at the end of the procedure. The patient was then awakened and extubated by anesthesia, returned to a stretcher, and taken to the recovery room in stable condition having tolerated the procedure well. Dr. Garcia was an essential assistant manager retail throughout the procedure including facilitating entry into the abdominal cavity, retraction and manipulation of the gallbladder throughout the case. He also helped with retrieval of the gallbladder, local infiltration, and closure of the port sites. Natanael [id number]
== END 2019-05-23 11:36 | disposition home health service (06) | DRG 418 ==
LOC: JER 10:15 → JERBED 14:26 → J6S 17:30
PROVIDERS: ADMIT Internal Medicine; ATTEND Internal Medicine
PROC: 0FT44ZZ Resection of Gallbladder, Percutaneous Endoscopic Approach (ICD-10-PCS; principal; 2019-05-20 08:00)
DX: K85.10 Biliary acute pancreatitis without necrosis or infection (principal); N17.9 Acute kidney failure, unspecified; K80.00 Calculus of gallbladder with acute cholecystitis without obstruction; R11.2 Nausea with vomiting, unspecified; R10.13 Epigastric pain; D72.829 Elevated white blood cell count, unspecified; I10 Essential (primary) hypertension; R19.7 Diarrhea, unspecified; Z88.0 Allergy status to penicillin; K21.9 Gastro-esophageal reflux disease without esophagitis
CPT/HCPCS: 36415; 71045-TC-FY; 74177-TC; 74181-TC; 76705-TC; 80053; 80076; 82272; 82803; 83605; 83690; 83735; 84100; 84484; 85025; 85610; 85730; 86140; 86850; 86900; 86901; 87040; 87086; 87324; 87449; 88304-TC; 93005; 93010; 94010; 94760; 97116-GP; 97161-GP; 99284-25; G0480; J0131; J7030

== ENCOUNTER 2020-10-04 13:45 | Inpatient (IN) | payer OTHER ==
[2020-10-04] MEDS ORDERED: SODIUM CHLORIDE 0.9% 500 ML INFUS.BAG IV ONE ×2 (14:45→16:44)
[2020-10-04] MEDS ORDERED: ACETAMINOPHEN 1000 MG/100 ML VIAL (NON FORMULARY) IVPB ONE (14:45)
[2020-10-04 14:54] LABS: EPITHELIAL CELLS MODERATE /hpf
[2020-10-04 14:55] LABS: URINE MUCUS 1+
[2020-10-04 15:11] LABS: BASO % 4.9 % (0-2.0); HEMATOCRIT 41.1 % (32.4-45.2); HEMOGLOBIN 13.4 GM/dl (10.7-15.3); MCH 28.1 pg (25.7-33.7); MCHC 32.6 g/dl (32.0-36.0); MEAN CELL VOLUME 86.4 fl (80-96); MEAN PLT VOLUME 9.9 fl (7.5-11.1); MONO % 8.9 % (3.8-10.2); NEUT % 62.2 % (42.8-82.8); PLATELET COUNT 151 K/MM3 (134-434); RBC 4.76 M/mm3 (3.60-5.2); RDW 13.9 % (11.6-15.6); WHITE BLOOD COUNT 3.9 K/mm3 (4.0-10.8)
[2020-10-04 15:19] LABS: ALBUMIN 3.9 g/dl (3.4-5.0); BILIRUBIN,TOTAL 0.5 mg/dl (0.2-1); CALCIUM 8.7 mg/dl (8.5-10); CREATININE 1.5 mg/dl (0.55-1.3); POTASSIUM 4.2 mmol/L (3.5-5.1); TOT PROT 6.9 g/dl (6.4-8.2)
[2020-10-04] MEDS ORDERED: ACETAMINOPHEN INJECTION 100 ML IVPB ONE (15:26)
[2020-10-04] MEDS ORDERED: cefTRIAXone SODIUM 1 GM VIAL ONE (16:43)
[2020-10-04 17:54] LABS: INR 1.32 (0.82-1.09); PROTHROMBIN TIME (PATIENT) 14.5 SEC (10.2-13.0)
[2020-10-04 17:56] LABS: BILIRUBIN,DIRECT 0.2 mg/dL (0.0-0.2)
[2020-10-05] MEDS ORDERED: ACETAMINOPHEN 1000 MG/100 ML VIAL (NON FORMULARY) IVPB ONE (06:30)
[2020-10-05] MEDS: ASCORBIC ACID 500 MG TABLET (FP) PO SCH ×2 (09:39→21:34)
[2020-10-05] MEDS: ZINC SULFATE 220 MG CAPSULE (FP) PO SCH (09:39)
[2020-10-05] MEDS: CHOLECALCIFEROL (VIT D3) 1,000 UNIT (25 MCG) TABLET PO SCH (09:39)
[2020-10-05 09:57] LABS: BASO % 0.3 % (0-2.0); EOS % 0.1 % (0-4.5); HEMATOCRIT 38.4 % (32.4-45.2); HEMOGLOBIN 12.8 GM/dL (10.7-15.3); LYMPH % 32.2 % (8-40); MCHC 33.3 g/dl (32.0-36.0); MEAN PLT VOLUME 10.1 fl (7.5-11.1); MONO % 9.3 % (3.8-10.2); NEUT % 58.1 % (42.8-82.8); PLATELET COUNT 85 K/MM3 (134-434); RBC 4.41 M/mm3 (3.60-5.2); RDW 14.8 % (11.6-15.6)
[2020-10-05 10:26] LABS: CALCIUM 8.3 mg/dL (8.5-10.1)
[2020-10-05 10:27] LABS: ALBUMIN 3.5 g/dl (3.4-5.0); BLOOD UREA NITROGEN 13.3 mg/dL (7-18)
[2020-10-05 10:30] LABS: CREATININE 0.9 mg/dL (0.55-1.3)
[2020-10-05 10:31] LABS: BILIRUBIN,TOTAL 0.9 mg/dL (0.2-1); TOT PROT 6.6 g/dl (6.4-8.2)
[2020-10-05] MEDS: ENOXAPARIN NA (PORCINE) 30 MG/0.3 ML DISP.SYRIN SQ SCH (11:19)
[2020-10-05] MEDS: PANTOPRAZOLE 40 MG TABLET PO SCH (11:20)
[2020-10-05] MEDS: ACETAMINOPHEN 500 MG TABLET (FP) PO PRN (22:10)
[2020-10-06 09:31] LABS: POTASSIUM 4.3 mmol/L (3.5-5.1)
[2020-10-06 09:37] LABS: ALBUMIN 3.2 g/dl (3.4-5.0); CALCIUM 8.6 mg/dL (8.5-10.1)
[2020-10-06 09:38] LABS: BLOOD UREA NITROGEN 11.8 mg/dL (7-18)
[2020-10-06 09:42] LABS: TOT PROT 6.3 g/dl (6.4-8.2)
[2020-10-06] MEDS: CHOLECALCIFEROL (VIT D3) 1,000 UNIT (25 MCG) TABLET PO SCH (11:31)
[2020-10-06] MEDS: ASCORBIC ACID 500 MG TABLET (FP) PO SCH ×2 (11:31→21:38)
[2020-10-06] MEDS: ACETAMINOPHEN 500 MG TABLET (FP) PO PRN ×2 (11:31→20:26)
[2020-10-06] MEDS: ZINC SULFATE 220 MG CAPSULE (FP) PO SCH (11:32)
[2020-10-06] MEDS: amLODIPine BESYLATE 5 MG TABLET (FP) PO SCH (11:32)
[2020-10-06] MEDS: ENOXAPARIN NA (PORCINE) 30 MG/0.3 ML DISP.SYRIN SQ SCH (11:32)
[2020-10-06] MEDS: PANTOPRAZOLE 40 MG TABLET PO SCH (11:32)
[2020-10-06] MEDS ORDERED: ONDANSETRON 4 MG/2 ML VIAL IVPUSH PRN (12:11)
[2020-10-06 18:15] LABS: BASO % 0.6 % (0-2.0); EOS % 0.1 % (0-4.5); HEMATOCRIT 37.9 % (32.4-45.2); HEMOGLOBIN 12.5 GM/dL (10.7-15.3); LYMPH % 30.4 % (8-40); MCH 28.2 pg (25.7-33.7); MCHC 32.9 g/dl (32.0-36.0); MEAN CELL VOLUME 85.9 fl (80-96); MONO % 10.6 % (3.8-10.2); NEUT % 58.3 % (42.8-82.8); PLATELET COUNT 158 K/MM3 (134-434); RBC 4.42 M/mm3 (3.60-5.2); RDW 14.4 % (11.6-15.6); WHITE BLOOD COUNT 5.2 K/mm3 (4.0-10.0)
[2020-10-07] MEDS: ACETAMINOPHEN 500 MG TABLET (FP) PO PRN ×2 (04:09→13:39)
[2020-10-07 08:57] LABS: POTASSIUM 3.8 mmol/L (3.5-5.1)
[2020-10-07 08:58] LABS: BASO % 0.4 % (0-2.0); HEMATOCRIT 37.7 % (32.4-45.2); HEMOGLOBIN 12.5 GM/dL (10.7-15.3); LYMPH % 25.9 % (8-40); MCH 28.1 pg (25.7-33.7); MCHC 33.2 g/dl (32.0-36.0); MEAN CELL VOLUME 84.7 fl (80-96); MEAN PLT VOLUME 11.3 fl (7.5-11.1); MONO % 10.7 % (3.8-10.2); PLATELET COUNT 179 K/MM3 (134-434); RBC 4.45 M/mm3 (3.60-5.2); RDW 14.5 % (11.6-15.6); WHITE BLOOD COUNT 4.6 K/mm3 (4.0-10.0)
[2020-10-07 09:07] LABS: BLOOD UREA NITROGEN 12.4 mg/dL (7-18); CALCIUM 8.4 mg/dL (8.5-10.1)
[2020-10-07 09:10] LABS: CREATININE 0.9 mg/dL (0.55-1.3)
[2020-10-07 09:11] LABS: BILIRUBIN,TOTAL 0.7 mg/dL (0.2-1); TOT PROT 6.1 g/dl (6.4-8.2)
[2020-10-07] MEDS: ENOXAPARIN NA (PORCINE) 30 MG/0.3 ML DISP.SYRIN SQ SCH (10:06)
[2020-10-07] MEDS: ASCORBIC ACID 500 MG TABLET (FP) PO SCH ×2 (10:06→22:33)
[2020-10-07] MEDS: amLODIPine BESYLATE 5 MG TABLET (FP) PO SCH (10:06)
[2020-10-07] MEDS: FAMOTIDINE 20 MG/50 ML IVPB 20 MG/50 ML MG IVPB SCH (10:06)
[2020-10-07] MEDS: CHOLECALCIFEROL (VIT D3) 1,000 UNIT (25 MCG) TABLET PO SCH (10:07)
[2020-10-07] MEDS: D5-1/2NS+10 MEQ KCL - 10 MEQ/1,000 ML INFUS.BAG IV SCH (13:43)
[2020-10-07] MEDS ORDERED: REMDESIVIR 200 MG in SODIUM CHLORIDE 210 ML IVPB ONE (14:00)
[2020-10-07] MEDS: DEXAMETHASONE SOD PHOSPHATE 4 MG/1 ML VIAL IVPB SCH (15:27)
[2020-10-07] MEDS: MIRTAZAPINE 15 MG TABLET (FP) PO SCH (22:33)
[2020-10-08] MEDS: ACETAMINOPHEN 500 MG TABLET (FP) PO PRN ×2 (02:14→22:53)
[2020-10-08] MEDS: D5-1/2NS+10 MEQ KCL - 10 MEQ/1,000 ML INFUS.BAG IV SCH ×3 (09:03→23:41)
[2020-10-08] MEDS: ENOXAPARIN NA (PORCINE) 30 MG/0.3 ML DISP.SYRIN SQ SCH (11:37)
[2020-10-08] MEDS: CHOLECALCIFEROL (VIT D3) 1,000 UNIT (25 MCG) TABLET PO SCH (11:37)
[2020-10-08] MEDS: ASCORBIC ACID 500 MG TABLET (FP) PO SCH ×2 (11:37→22:30)
[2020-10-08] MEDS: amLODIPine BESYLATE 5 MG TABLET (FP) PO SCH (11:37)
[2020-10-08] MEDS: FAMOTIDINE 20 MG/50 ML IVPB 20 MG/50 ML MG IVPB SCH (11:38)
[2020-10-08] MEDS: DEXAMETHASONE SOD PHOSPHATE 4 MG/1 ML VIAL IVPB SCH (11:39)
[2020-10-08] MEDS ORDERED: PT OWN MED DRAWER 7, Y5N ONE (12:29)
[2020-10-08] MEDS: REMDESIVIR 100 MG in SODIUM CHLORIDE 230 ML IVPB SCH (14:48)
[2020-10-08] MEDS: MIRTAZAPINE 15 MG TABLET (FP) PO SCH (22:30)
[2020-10-09] MEDS: CHOLECALCIFEROL (VIT D3) 1,000 UNIT (25 MCG) TABLET PO SCH (09:20)
[2020-10-09] MEDS: amLODIPine BESYLATE 5 MG TABLET (FP) PO SCH (09:20)
[2020-10-09] MEDS: ASCORBIC ACID 500 MG TABLET (FP) PO SCH ×2 (09:20→22:06)
[2020-10-09] MEDS: FAMOTIDINE 20 MG/50 ML IVPB 20 MG/50 ML MG IVPB SCH (09:21)
[2020-10-09] MEDS: ENOXAPARIN NA (PORCINE) 30 MG/0.3 ML DISP.SYRIN SQ SCH (09:22)
[2020-10-09 09:23] LABS: BASO % 0.2 % (0-2.0); LYMPH % 16.7 % (8-40); MCH 28.6 pg (25.7-33.7); MCHC 33.4 g/dl (32.0-36.0); MEAN CELL VOLUME 85.4 fl (80-96); MEAN PLT VOLUME 10.9 fl (7.5-11.1); NEUT % 75.1 % (42.8-82.8); PLATELET COUNT 244 K/MM3 (134-434); RBC 4.22 M/mm3 (3.60-5.2); RDW 14.2 % (11.6-15.6); WHITE BLOOD COUNT 9.6 K/mm3 (4.0-10.0)
[2020-10-09] MEDS: DEXAMETHASONE SOD PHOSPHATE 4 MG/1 ML VIAL IVPB SCH (09:27)
[2020-10-09 09:49] LABS: POTASSIUM 4.4 mmol/L (3.5-5.1)
[2020-10-09 10:29] LABS: CREATININE 0.8 mg/dL (0.55-1.3)
[2020-10-09 10:30] LABS: PHOSPHOROUS 2.5 mg/dL (2.5-4.9)
[2020-10-09 10:31] LABS: BILIRUBIN,TOTAL 0.4 mg/dL (0.2-1)
[2020-10-09 10:34] LABS: CALCIUM 8.9 mg/dL (8.5-10.1)
[2020-10-09 10:35] LABS: ALBUMIN 2.8 g/dl (3.4-5.0); MAGNESIUM 1.9 mg/dL (1.8-2.4)
[2020-10-09 10:44] LABS: BLOOD UREA NITROGEN 13.6 mg/dL (7-18)
[2020-10-09] MEDS: REMDESIVIR 100 MG in SODIUM CHLORIDE 230 ML IVPB SCH (12:06)
[2020-10-09] MEDS: D5-1/2NS+10 MEQ KCL - 10 MEQ/1,000 ML INFUS.BAG IV SCH (14:53)
[2020-10-09] MEDS: MIRTAZAPINE 15 MG TABLET (FP) PO SCH (22:06)
[2020-10-09] MEDS ORDERED: MAG HYDROX/AL HYDROX/SIMETH 30 ML UNIT-DOSE CUP PO PRN (23:26)
[2020-10-10] MEDS: FAMOTIDINE 20 MG/50 ML IVPB 20 MG/50 ML MG IVPB SCH (09:01)
[2020-10-10] MEDS: DEXAMETHASONE SOD PHOSPHATE 4 MG/1 ML VIAL IVPB SCH (09:01)
[2020-10-10] MEDS: REMDESIVIR 100 MG in SODIUM CHLORIDE 230 ML IVPB SCH (09:01)
[2020-10-10] MEDS: D5-1/2NS+10 MEQ KCL - 10 MEQ/1,000 ML INFUS.BAG IV SCH ×2 (09:05→22:26)
[2020-10-10] MEDS: amLODIPine BESYLATE 5 MG TABLET (FP) PO SCH (09:05)
[2020-10-10] MEDS: ENOXAPARIN NA (PORCINE) 30 MG/0.3 ML DISP.SYRIN SQ SCH (09:05)
[2020-10-10] MEDS: CHOLECALCIFEROL (VIT D3) 1,000 UNIT (25 MCG) TABLET PO SCH (09:05)
[2020-10-10] MEDS: ASCORBIC ACID 500 MG TABLET (FP) PO SCH ×2 (09:05→22:15)
[2020-10-10 10:02] LABS: POTASSIUM 4.1 mmol/L (3.5-5.1)
[2020-10-10 10:07] LABS: CALCIUM 8.7 mg/dL (8.5-10.1)
[2020-10-10 10:08] LABS: ALBUMIN 2.8 g/dl (3.4-5.0)
[2020-10-10 10:11] LABS: CREATININE 0.9 mg/dL (0.55-1.3)
[2020-10-10 10:12] LABS: BILIRUBIN,TOTAL 0.5 mg/dL (0.2-1); TOT PROT 6.1 g/dl (6.4-8.2)
[2020-10-10] MEDS: MIRTAZAPINE 15 MG TABLET (FP) PO SCH (22:15)
[2020-10-11] MEDS: FAMOTIDINE 20 MG/50 ML IVPB 20 MG/50 ML MG IVPB SCH (09:28)
[2020-10-11] MEDS: DEXAMETHASONE SOD PHOSPHATE 4 MG/1 ML VIAL IVPB SCH (09:29)
[2020-10-11] MEDS: CHOLECALCIFEROL (VIT D3) 1,000 UNIT (25 MCG) TABLET PO SCH (09:30)
[2020-10-11] MEDS: ASCORBIC ACID 500 MG TABLET (FP) PO SCH ×2 (09:30→22:00)
[2020-10-11] MEDS: ENOXAPARIN NA (PORCINE) 30 MG/0.3 ML DISP.SYRIN SQ SCH (09:30)
[2020-10-11] MEDS: amLODIPine BESYLATE 5 MG TABLET (FP) PO SCH (09:30)
[2020-10-11] MEDS: REMDESIVIR 100 MG in SODIUM CHLORIDE 230 ML IVPB SCH (12:47)
[2020-10-11] MEDS: D5-1/2NS+10 MEQ KCL - 10 MEQ/1,000 ML INFUS.BAG IV SCH (15:44)
[2020-10-11 17:04] VITALS: BMI 26.4
[2020-10-11] MEDS: MIRTAZAPINE 15 MG TABLET (FP) PO SCH (22:00)
[2020-10-12] MEDS: ASCORBIC ACID 500 MG TABLET (FP) PO SCH (09:09)
[2020-10-12] MEDS: CHOLECALCIFEROL (VIT D3) 1,000 UNIT (25 MCG) TABLET PO SCH (09:09)
[2020-10-12] MEDS: D5-1/2NS+10 MEQ KCL - 10 MEQ/1,000 ML INFUS.BAG IV SCH (09:09)
[2020-10-12] MEDS: amLODIPine BESYLATE 5 MG TABLET (FP) PO SCH (09:09)
[2020-10-12] MEDS: FAMOTIDINE 20 MG/50 ML IVPB 20 MG/50 ML MG IVPB SCH (09:09)
[2020-10-12] MEDS: ENOXAPARIN NA (PORCINE) 30 MG/0.3 ML DISP.SYRIN SQ SCH (09:09)
[2020-10-12] MEDS: DEXAMETHASONE SOD PHOSPHATE 4 MG/1 ML VIAL IVPB SCH (09:09)
[2020-10-12 10:17] VITALS: BP 142/82; PULSE 56; TEMP 98.8
== END 2020-10-12 13:43 | disposition home or self-care (01) | DRG 177 ==
LOC: FER 13:45 → J6S 22:22
PROVIDERS: ADMIT Internal Medicine; ATTEND Internal Medicine
PROC: XW13325 Transfusion of Convalescent Plasma (Nonautologous) into Peripheral Vein, Percutaneous Approach, New Technology Group 5 (ICD-10-PCS; principal; 2020-10-08)
PROC: XW033E5 Introduction of Remdesivir Anti-infective into Peripheral Vein, Percutaneous Approach, New Technology Group 5 (ICD-10-PCS; 2020-10-08)
DX: U07.1 COVID-19 (principal); J12.82 Pneumonia due to coronavirus disease 2019; N17.9 Acute kidney failure, unspecified; R63.0 Anorexia; R19.7 Diarrhea, unspecified; K21.9 Gastro-esophageal reflux disease without esophagitis; I10 Essential (primary) hypertension; D72.819 Decreased white blood cell count, unspecified; D69.6 Thrombocytopenia, unspecified
CPT/HCPCS: 36415; 36430; 71046-TC-FY; 80053; 81003; 81015; 82248; 82550; 82728; 83615; 83735; 84100; 84439; 84443; 84484; 85025; 85379; 85610; 85730; 86140; 86850; 86900; 86901; 87040; 87086; 87804; 93005; 94761; 99285-25; C9399; C9803; J0131; P9017; U0003

== ENCOUNTER 2021-10-13 01:07 | Observation (INO) | payer OTHER ==
[2021-10-13] MEDS ORDERED: ONDANSETRON *ODT* 4 MG TABLET SL ONE (01:34)
[2021-10-13] MEDS ORDERED: ONDANSETRON *ODT* 4 MG TABLET ONE (01:37)
[2021-10-13 01:49] VITALS: BMI 29.2
[2021-10-13] MEDS ORDERED: SODIUM CHLORIDE 0.9% 500 ML INFUS.BAG IV ONE (01:50)
[2021-10-13] MEDS ORDERED: MECLIZINE HCL 12.5 MG TABLET PO ONE (01:50)
[2021-10-13] MEDS ORDERED: MECLIZINE HCL 25 MG TABLET (FP) PO ONE (01:56)
[2021-10-13] MEDS ORDERED: FAMOTIDINE 20 MG/50 ML IVPB 20 MG/50 ML MG IVPB ONE ×2 (01:56→01:59)
[2021-10-13] MEDS ORDERED: ONDANSETRON 4 MG/2 ML VIAL IVPUSH ONE (01:56)
[2021-10-13] MEDS ORDERED: ACETAMINOPHEN 1000 MG/100 ML BAG IVPB ONE (01:57)
[2021-10-13] MEDS ORDERED: ONDANSETRON 4 MG/2 ML VIAL ONE (01:59)
[2021-10-13] MEDS ORDERED: MECLIZINE HCL 25 MG TABLET (FP) ONE (01:59)
[2021-10-13] MEDS ORDERED: ACETAMINOPHEN INJECTION 100 ML IVPB ONE (01:59)
[2021-10-13 02:46] LABS: BASO % 0.6 % (0-2.0); EOS % 1.6 % (0-4.5); HEMATOCRIT 41.5 % (32.4-45.2); HEMOGLOBIN 13.5 GM/dL (10.7-15.3); MCH 27.9 pg (25.7-33.7); MCHC 32.6 g/dl (32.0-36.0); MEAN CELL VOLUME 85.8 fl (80-96); MEAN PLT VOLUME 8.7 fl (7.5-11.1); MONO % 9.7 % (3.8-10.2); NEUT % 59.1 % (42.8-82.8); PLATELET COUNT 237 10^3/uL (134-434); RBC 4.83 M/mm3 (3.60-5.2); RDW 15.1 % (11.6-15.6); WHITE BLOOD COUNT 6.1 K/mm3 (4.0-10.0)
[2021-10-13 03:09] LABS: CHLORIDE 106 mmol/L (98-107); SODIUM 138 mmol/L (136-145)
[2021-10-13 03:11] LABS: CALCIUM 9.6 mg/dL (8.5-10.1)
[2021-10-13 03:12] LABS: ALBUMIN 3.9 g/dl (3.4-5.0); ANION GAP 7 MMOL/L (8-16); BLOOD UREA NITROGEN 17.3 mg/dL (7-18); CO2 25 mmol/L (21-32); GLUCOSE,RANDOM 161 mg/dL (74-106); LIPASE 103 U/L (73-393)
[2021-10-13 03:15] LABS: CREATININE 1.2 mg/dL (0.55-1.3); SGOT/AST 29 U/L (15-37); SGPT/ALT 22 U/L (13-61)
[2021-10-13 03:16] LABS: BILIRUBIN,TOTAL 0.4 mg/dL (0.2-1); TOT PROT 7.3 g/dl (6.4-8.2)
[2021-10-13 03:17] LABS: ALK PHOS 89 U/L (45-117)
[2021-10-13 03:18] LABS: LACTIC ACID 2.1 mmol/L (0.4-2.0)
[2021-10-13] MEDS ORDERED: CIPROFLOXACIN 500 MG TABLET (RESTRICTED TO ID) PO ONE (04:44)
[2021-10-13 05:00] LABS: PH,URINE 8.5 (5.0-8.0); URINE APPEARANCE CLEAR; URINE BILIRUBIN NEGATIVE (NEGATIVE); URINE COLOR YELLOW; URINE GLUCOSE (UA) NEGATIVE (NEGATIVE); URINE KETONE NEGATIVE (NEGATIVE); URINE LEUK ESTERASE NEGATIVE (NEGATIVE); URINE NITRITE NEGATIVE (NEGATIVE); URINE PROTEIN NEGATIVE (NEGATIVE); URINE UROBILINOGEN 0.2 mg/dL (0.2-1.0)
[2021-10-13] MEDS ORDERED: ONDANSETRON 4 MG/2 ML VIAL IVPUSH PRN (11:05)
[2021-10-13] MEDS: DEXTROSE 5%-NORMAL SALINE 1,000 ML IV SCH (11:30)
[2021-10-13] MEDS ORDERED: MECLIZINE HCL 12.5 MG TABLET PO PRN (11:47)
[2021-10-13] MEDS: ACETAMINOPHEN 325 MG TABLET (FP) PO PRN (21:08)
[2021-10-14] MEDS: PANTOPRAZOLE SODIUM 40 MG VIAL IVPUSH SCH (09:51)
[2021-10-14] MEDS: DEXTROSE 5%-NORMAL SALINE 1,000 ML IV SCH ×3 (09:52→23:03)
[2021-10-14] MEDS: ENOXAPARIN NA (PORCINE) 40 MG/0.4 ML DISP.SYRIN SQ SCH (09:52)
[2021-10-15 07:42] LABS: BASO % 1.5 % (0-2.0); EOS % 3.7 % (0-4.5); HEMATOCRIT 37.7 % (32.4-45.2); LYMPH % 44.7 % (8-40); MCH 27.4 pg (25.7-33.7); MCHC 31.7 g/dl (32.0-36.0); MEAN CELL VOLUME 86.5 fl (80-96); MEAN PLT VOLUME 8.9 fl (7.5-11.1); MONO % 13.8 % (3.8-10.2); NEUT % 36.3 % (42.8-82.8); PLATELET COUNT 220 10^3/uL (134-434); RBC 4.37 M/mm3 (3.60-5.2); RDW 14.8 % (11.6-15.6); WHITE BLOOD COUNT 4.6 K/mm3 (4.0-10.0)
[2021-10-15 08:03] LABS: ALBUMIN 3.2 g/dl (3.4-5.0); BLOOD UREA NITROGEN 8.6 mg/dL (7-18); CALCIUM 9.1 mg/dL (8.5-10.1)
[2021-10-15 08:06] LABS: CREATININE 1.1 mg/dL (0.55-1.3)
[2021-10-15 08:08] LABS: BILIRUBIN,TOTAL 0.7 mg/dL (0.2-1)
[2021-10-15] MEDS: PANTOPRAZOLE SODIUM 40 MG VIAL IVPUSH SCH (10:16)
[2021-10-15] MEDS: ENOXAPARIN NA (PORCINE) 40 MG/0.4 ML DISP.SYRIN SQ SCH (10:16)
[2021-10-15] MEDS: ACETAMINOPHEN 325 MG TABLET (FP) PO PRN ×2 (10:26→17:07)
[2021-10-15] MEDS: DEXTROSE 5%-NORMAL SALINE 1,000 ML IV SCH (10:28)
[2021-10-16] MEDS: ENOXAPARIN NA (PORCINE) 40 MG/0.4 ML DISP.SYRIN SQ SCH (09:06)
[2021-10-16] MEDS ORDERED: LISINOPRIL 20 MG TABLET PO SCH (10:00)
[2021-10-16] MEDS ORDERED: PANTOPRAZOLE 40 MG TABLET PO SCH (10:00)
[2021-10-16] MEDS ORDERED: amLODIPine BESYLATE 5 MG TABLET (FP) PO SCH (10:00)
[2021-10-16 10:34] VITALS: BP 145/71; PULSE 68; TEMP 98.2
== END 2021-10-16 11:20 | disposition home or self-care (01) ==
LOC: JER 01:07 → JERBED 04:41 → J4S 19:03
PROVIDERS: ADMIT Internal Medicine; ATTEND Internal Medicine
PROC: 3E023GC Introduction of Other Therapeutic Substance into Muscle, Percutaneous Approach (ICD-10-PCS; principal; 2021-10-13)
PROC: 3E033GC Introduction of Other Therapeutic Substance into Peripheral Vein, Percutaneous Approach (ICD-10-PCS; 2021-10-13)
PROC: 3E033NZ Introduction of Analgesics, Hypnotics, Sedatives into Peripheral Vein, Percutaneous Approach (ICD-10-PCS; 2021-10-13)
PROC: 3E03329 Introduction of Other Anti-infective into Peripheral Vein, Percutaneous Approach (ICD-10-PCS; 2021-10-13)
PROC: 3E0337Z Introduction of Electrolytic and Water Balance Substance into Peripheral Vein, Percutaneous Approach (ICD-10-PCS; 2021-10-13)
DX: K52.9 Noninfective gastroenteritis and colitis, unspecified (principal); R33.9 Retention of urine, unspecified; R42 Dizziness and giddiness; R11.10 Vomiting, unspecified; I10 Essential (primary) hypertension; Z91.013 Allergy to seafood; Z88.0 Allergy status to penicillin; R11.2 Nausea with vomiting, unspecified
CPT/HCPCS: 36415; 70450-TC; 71045-TC-FY; 74174-TC; 74177-TC; 80053; 81003; 82550; 82962; 83605; 83690; 84484; 85025; 93005; 93010; 96365; 96367; 96372; 96375; 99285-25; C9803; G0378; J0131; Q0162; Q9967; U0003; U0005